=== PATIENT | male | born 1975 | race Hispanic/Latino ===

== ENCOUNTER 2017-06-11 09:26 | Inpatient (IN) | payer MEDICAID, OTHER ==
[2017-06-11 09:30] VITALS: BMI 38.4
[2017-06-11] MEDS ORDERED: Sodium Chloride 0.9% 1,000 ML IV STA (09:56)
--- NOTE | 2017-06-11 10:10 | ED PDOC ---
Arrival/HPI - General Chief Complaint: Lower Extremity Problem/Injury Time Seen by Provider: 06/11/17 09:30 Historian: Patient - History of Present Illness Narrative History of Present Illness (Text): 06/11/17 10:07 41-year-old male presents today with a 2 day history of right foot and ankle pain. Patient denies trauma or injury. Denies fevers or chills. Patient states pain is severe in the right foot and ankle that he is unable to apply pressure. Patient states he is a diabetic and has not been taking his medications. Patient denies chest pain or shortness of breath. No abdominal pain. No medications taken for pain at home. No other complaints. Patient states the pain is sharp and severe and located to the lateral aspect of the foot and ankle. Time/Duration: Other (2 days) Symptom Onset: Sudden Symptom Course: Worsening Quality: Aching, Stabbing Severity Level: Severe Past Medical History - Provider Review Nursing Documentation Reviewed: Yes - Travel History Have you recently traveled outside [place] w/in the past 3 mons?: No - Infectious Disease Hx of Infectious Diseases: None - Tetanus Immunization Tetanus Immunization: Unknown - Cardiac Hx Cardiac Disorders: No - Pulmonary Hx Respiratory Disorders: No - Neurological Hx Neurological Disorder: No - HEENT Hx HEENT Disorder: No - Renal Hx Renal Disorder: No - Endocrine/Metabolic Hx Endocrine Disorders: Yes Hx Diabetes Mellitus Type 2: Yes - Hematological/Oncological Hx Blood Disorders: No - Integumentary Hx Dermatological Disorder: No - Musculoskeletal/Rheumatological Hx Musculoskeletal Disorders: No Hx Falls: No - Gastrointestinal Hx Gastrointestinal Disorders: No - Genitourinary/Gynecological Hx Genitourinary Disorders: No - Psychiatric Hx Psychophysiologic Disorder: No Hx Substance Use: No - Past Surgical History Past Surgical History: Non-Contributing - Surgical History Other/Comment: benign cyst removed from behind L ear - Anesthesia Hx Anesthesia: Yes Hx Anesthesia Reactions: No Hx Malignant Hyperthermia: No - Suicidal Assessment Feels Threatened In Home Enviroment: No Family/Social History - Physician Review Nursing Documentation Reviewed: Yes Family/Social History: Unknown Family HX Smoking Status: Heavy Smoker > 10 Cigarettes Daily Hx Alcohol Use: No Hx Substance Use: No Hx Substance Use Treatment: No Allergies/Home Meds Allergies/Adverse Reactions: Allergies No Known Allergies Allergy (Verified 10/30/14 08:49) Home Medications: Home Meds Medication Instructions Recorded Confirmed No Known Home Med 10/03/16 06/11/17 Review of Systems - Review of Systems Constitutional: absent: Fatigue, Fevers Respiratory: absent: SOB, Cough Cardiovascular: absent: Chest Pain, Palpitations Gastrointestinal: absent: Abdominal Pain, Nausea, Vomiting Musculoskeletal: Arthralgias Skin: Cellulitis Neurological: absent: Headache, Dizziness Psychiatric: absent: Anxiety, Depression Physical Exam Vital Signs Reviewed: Yes Vital Signs Temp Pulse Resp BP Pulse Ox 06/11/17 11:07 98 H 18 145/86 99 06/11/17 09:30 98.6 F 103 H 18 149/94 H 99 Temperature: Afebrile Blood Pressure: Hypertensive Pulse: Tachycardic Respiratory Rate: Normal Appearance: Positive for: Well-Appearing, Non-Toxic, Comfortable Pain Distress: None Mental Status: Positive for: Alert and Oriented X 3 - Systems Exam Head: Present: Atraumatic Mouth: Present: Moist Mucous Membranes Neck: Present: Normal Range of Motion Respiratory/Chest: Present: Clear to Auscultation, Good Air Exchange. No: Respiratory Distress, Accessory Muscle Use Cardiovascular: Present: Regular Rate and Rhythm, Normal S1, S2. No: Murmurs Lower Extremity: Present: NORMAL PULSES, Normal ROM, Tenderness (right foot/ ankle; + edema and erythema noted to lateral aspect of foot. + edema noted to lateral malleolus; full passive rom of ankle with pain; sensation and distal pulses intact. cap refill <2. ), Swelling, Erythema, Neurovascularly Intact, Capillary Refill < 2 s. No: CALF TENDERNESS Neurological: Present: GCS=15, Speech Normal Skin: Present: Warm, Dry Psychiatric: Present: Alert, Oriented x 3 Medical Decision Making ED Course and Treatment: 06/11/17 10:11 41yr old male with right foot and ankle pain with swelling and erythema. cbc wnl cmp wnl blood cultures pending; toradol IV NS iv bolus xray right foot: no fracture xray right ankle; no fracture 06/11/17 11:46 pt non toxic; still c/o pain; pt is diabetic with right foot cellulitis; vancomycin and zosyn ordered IV. case discussed with dr. luqeu. will admit to med/surg for celluitis. impression; cellulitis, foot admit to med/surg. 06/11/17 12:28 - Lab Interpretations Lab Results: 06/11/17 10:00 06/11/17 10:00 Lab Results 06/11/17 10:00: WBC 9.9, RBC 5.25, Hgb 16.1, Hct 46.0, MCV 87.6, MCH 30.7, MCHC 35.0, RDW 13.9, Plt Count 208, MPV 11.6 H, Gran % 70.3 H, Lymph % (Auto) 18.1 L , [place] % (Auto) 8.3 H, Eos % (Auto) 2.7, Baso % (Auto) 0.6, Gran # 6.96 H, Lymph # 1.8, [place] # 0.8 H, Eos # 0.3, Baso # 0.06 06/11/17 10:00: Sodium 140, Potassium 4.1, Chloride 103, Carbon Dioxide 26, Anion Gap 15, BUN 10, Creatinine 0.6 L, Est GFR ( Amer) > 60, Est GFR ( Non-Af Amer) > 60, Random Glucose 121 H, Calcium 9.7, Total Bilirubin 0.5, AST 15 L, ALT 28, Alkaline Phosphatase 76, Total Protein 7.2, Albumin 4.5, Globulin 2.7, Albumin/Globulin Ratio 1.7 - RAD Interpretation Radiology Orders: 06/11/17 09:56 ANKLE RIGHT 3 VIEWS ROUTINE [RAD] Stat FOOT RIGHT 3 VIEWS ROUTINE [RAD] Stat 06/11/17 09:57 DUPLEX LOWER EXTRM VEIN RIGHT [US] Stat - Medication Orders Current Medication Orders: Vancomycin HCl (Vancomycin 1gm) 1 gm in 250 mls @ 167 mls/hr IVPB STAT STA PRN Reason: Protocol Stop: 06/11/17 13:05 Last Admin: 06/11/17 12:27 Dose: 167 mls/hr eMAR Start Stop Document 06/11/17 12:27 SF (Rec: 06/11/17 12:27 [place] [facility] [email or web address] Intravenous Solution Start Date 06/11/17 Start Time 12:27 End Date 06/11/17 End time 13:57 Total Infusion Time 90 Discontinued Medications Sodium Chloride (Sodium Chloride 0.9%) 1,000 mls @ 999 mls/hr IV .Q1H1M STA Stop: 06/11/17 10:56 Last Admin: 06/11/17 10:12 Dose: 999 mls/hr eMAR Start Stop Document 06/11/17 10:12 SF (Rec: 06/11/17 10:12 [email or web address] Intravenous Solution Start Date 06/11/17 Start Time 10:12 End Date 06/11/17 End time 11:13 Total Infusion Time 61 Piperacillin Sod/Tazobactam Sod (Zosyn 3.375 In Ns 100ml) 100 mls @ 200 mls/hr IVPB STAT STA PRN Reason: Protocol Stop: 06/11/17 12:05 Last Admin: 06/11/17 11:58 Dose: 200 mls/hr eMAR Start Stop Document 06/11/17 11:58 SF (Rec: 06/11/17 11:59 [email or web address] Intravenous Solution Start Date 06/11/17 Start Time 11:58 End Date 06/11/17 End time 12:28 Total Infusion Time 30 Ketorolac Tromethamine (Toradol) 30 mg IVP STAT STA Stop: 06/11/17 09:57 Last Admin: 06/11/17 10:12 Dose: 30 mg MAR Pain Assessment Document 06/11/17 10:12 SF (Rec[facility]11[facility]17 10:[email or web address] Pain Reassessment Is this a pain reassessment? Yes Sleep Is patient sleeping during reassessment? No Presence of Pain Presence of Pain Yes IVP Administration Document 06/11/17 10:12 SF (Rec: 06/11/17 10:13 [email or web address] Charges for Administration # of IVP Administrations 1 Disposition/Present on Arrival - Present on Arrival Any Indicators Present on Arrival: Yes History of DVT/PE: No History of Uncontrolled Diabetes: Yes Urinary Catheter: No History of Decub. Ulcer: No History Surgical Site Infection Following: None - Disposition Have Diagnosis and Disposition been Completed?: Yes Diagnosis: Cellulitis Disposition: HOSPITALIZED Disposition Time: 11:45 Patient Plan: Admission Patient Problems: Current Active Problems Problem Status Onset Cellulitis Acute Condition: FAIR Discharge Instructions (ExitCare): Cellulitis (ED) Referrals: Stacy La MD [Primary Care Provider] - Follow up with primary Forms: [employer] ([place])
[2017-06-11 10:40] LABS: BASO # 0.06 K/mm3 (0.0-2.0); BASO % 0.6 % (0.0-3.0); EOS # 0.3 (0.0-0.7); EOS % 2.7 % (1.5-5.0); GRAN # 6.96 (1.4-6.5); GRAN % 70.3 % (50.0-68.0); LYMPH # 1.8 (1.2-3.4); LYMPH % 18.1 % (22.0-35.0); MEAN CELL VOLUME 87.6 fl (80.0-105.0); MEAN CORPUSCULAR HEMOGLOBIN 30.7 pg (25.0-35.0); MEAN PLATELET VOLUME 11.6 fl (7.0-11.0); MONO # 0.8 (0.1-0.6); MONO % 8.3 % (1.0-6.0); RED CELL DISTRIBUTION WIDTH 13.9 % (11.5-14.5); WHITE BLOOD COUNT 9.9 10^3/ul (4.5-11.0)
[2017-06-11 10:41] LABS: ALB/GLOB RATIO 1.7 (1.1-1.8); ALKALINE PHOSPHATASE 76 U/L (38-126); ALT/SGPT 28 U/L (7-56); AST/SGOT 15 U/L (17-59); BILIRUBIN,TOTAL 0.5 mg/dL (0.2-1.3); BLOOD UREA NITROGEN 10 mg/dL (7-21); CALCIUM 9.7 mg/dL (8.4-10.5); CARBON DIOXIDE 26 mmol/L (21-33); CHLORIDE 103 mmol/L (98-107); GFR AFRICAN-AMERICAN > 60; GLUCOSE,RANDOM 121 mg/dL (70-110); POTASSIUM 4.1 mmol/L (3.6-5.0); SODIUM 140 mmol/L (132-148); TOTAL PROTEIN 7.2 g/dL (5.8-8.3)
--- NOTE | 2017-06-11 11:22 | US ---
PROCEDURE: Right lower extremity venous US HISTORY: Leg pain and swelling. Evaluate for DVT. PHYSICIAN(S): Dave Roe M.D. TECHNIQUE: Duplex sonography and color-flow Doppler with graded compression were used to evaluate the deep venous system of the right lower extremity. FINDINGS: The visualized deep venous system of the right lower extremity is sonographically normal and compressible. Normal waveforms and augmentation are seen. There is no sonographic evidence for deep venous thrombosis in the visualized segments of the right lower extremity. IMPRESSION: 1. No sonographic evidence for deep venous thrombosis in the visualized segments of the right lower extremity.
[2017-06-11] MEDS ORDERED: Vancomycin 1gm in NS 250ml 1 GM/250 ML BAG IVPB STA (11:36)
[2017-06-11] MEDS ORDERED: Piperacillin/Tazobact 3.375 gm 100 ML IVPB STA (11:36)
--- NOTE | 2017-06-11 11:36 | RAD ---
PROCEDURE: Right Ankle Radiographs. HISTORY: ankle pain COMPARISON: None FINDINGS: BONES: Normal. No fracture. JOINTS: Normal. No osteoarthritis. Ankle mortise maintained. Talar dome intact SOFT TISSUES: Calcification can be seen between the tibia and fibula probably within the interosseous ligament. This is of doubtful significance OTHER FINDINGS: None. IMPRESSION: No acute findings
--- NOTE | 2017-06-11 12:16 | RAD ---
PROCEDURE: Right Foot Radiographs. HISTORY: foot pain COMPARISON: None. FINDINGS: BONES: Normal. No fracture. JOINTS: Normal. SOFT TISSUES: Normal. OTHER FINDINGS: None. IMPRESSION: Normal right foot radiographs.
[2017-06-11] MEDS ORDERED: Morphine 2 mg/ml ISec IVP PRN (14:17)
--- NOTE | 2017-06-11 14:30 | CP.PCM.HP ---
<Driss Mims - Last Filed: 06/11/17 14:52> History of Present Illness - History of Present Illness History of Present Illness: Subjective: Patient is a 41-year-old male with a past medical history of diabetes and tobacco abuse who presented to the ED for evaluation and treatment of right foot pain. Patient states the pain began 2 nights ago without any provoking event. Denies trauma or injury to affected area.Pain is associated with redness and swelling which remains localized to the lateral aspects of the right foot and ankle. Associated with pain which is described as being sharp in nature and is rated a 10/10. Pain is exacerbated with applied pressure and reduced with off-loading. Denies f/c/cp/sob/abdominal pain/n/v/d/c/urinary sxs. Physical Examination: Head: Present: Atraumatic, NC Mouth: Present: Moist Mucous Membranes Neck: Present: Normal Range of Motion Respiratory/Chest: Present: Clear to Auscultation, Good Air Exchange. No: Respiratory Distress, Accessory Muscle Use Cardiovascular: Present: Regular Rate and Rhythm, Normal S1, S2. No: Murmurs Abdomen: soft, NTTP, no guarding, no rebound tenderness Lower Extremity: Present: DP pulses intact bilaterally, Normal ROM, Tenderness to palpation right foot/ankle; + edema and erythema noted to lateral aspect of foot. + edema noted to lateral malleolus; full passive rom of ankle with pain; sensation and distal pulses intact. cap refill < 2 seconds Neurological: Patient is awake, alert, responds to verbal stimuli, answers questions appropriately, follows commands, and moves extremities past midline Skin: Present: Warm, Dry Psychiatric: Present: Alert, Oriented x 3 Assessment and Plan: Patient is a 41-year-old male with a past medical history of diabetes who presented to the ED for evaluation and treatment of right foot pain. Right Foot and Ankle Cellulitis - vancomycin and zosyn - foot MRI with and without contrast to rule out OM - blood culture and wound cultures - pain control with toradol prn and morphine prn - prn tylenol for fever - ID consult- appreciate recs - Podo consult- appreciate recs Diabetes - noncompliant with home meds - fingersticks ACHS - ISS - A1C pending - lipid panel pending - carb consistent diet Tobacco Abuse - encouraged smoking cessation, education on danger of smoking/chewing tobacco products provided - nicotine patch PPX - protonix - subq heparin Patient seen, case discussed with, and plan approved by attending physician, Dr. Dumont. Present on Admission - Present on Admission Any Indicators Present on Admission: Yes History of Uncontrolled Diabetes: Yes Past Patient History - Infectious Disease Hx of Infectious Diseases: None - Tetanus Immunizations Tetanus Immunization: Unknown - Past Social History Smoking Status: Heavy Smoker > 10 Cigarettes Daily - CARDIAC Hx Cardiac Disorders: No - PULMONARY Hx Respiratory Disorders: No - NEUROLOGICAL Hx Neurological Disorder: No - HEENT Hx HEENT Problems: No - RENAL Hx Chronic Kidney Disease: No - ENDOCRINE/METABOLIC Hx Endocrine Disorders: Yes Hx Diabetes Mellitus Type 2: Yes - HEMATOLOGICAL/ONCOLOGICAL Hx Blood Disorders: No - INTEGUMENTARY Hx Dermatological Problems: No - MUSCULOSKELETAL/RHEUMATOLOGICAL Hx Musculoskeletal Disorders: No Hx Falls: No - GASTROINTESTINAL Hx Gastrointestinal Disorders: No - GENITOURINARY/GYNECOLOGICAL Hx Genitourinary Disorders: No - PSYCHIATRIC Hx Psychophysiologic Disorder: No Hx Substance Use: No - SURGICAL HISTORY Other/Comment: benign cyst removed from behind L ear - ANESTHESIA Hx Anesthesia: Yes Hx Anesthesia Reactions: No Hx Malignant Hyperthermia: No Meds Allergies/Adverse Reactions: Allergies Allergy/AdvReac Type Severity Reaction Status Date / Time No Known Allergies Allergy Verified 06/11/17 17:03 Results - Vital Signs Recent Vital Signs: Last Vital Signs Temp 98.6 F 06/11/17 09:30 Pulse 80 06/11/17 13:40 Resp 18 06/11/17 13:40 BP 143/79 06/11/17 12:49 Pulse Ox 99 06/11/17 12:49 - Labs Result Diagrams: 06/11/17 10:00 06/11/17 10:00 <Danyell Dumont - Last Filed: 06/12/17 16:42> Results - Vital Signs Recent Vital Signs: Last Vital Signs Temp 97.8 F 06/12/17 07:30 Pulse 68 06/12/17 07:30 Resp 20 06/12/17 07:30 BP 118/82 06/12/17 07:30 Pulse Ox 97 06/12/17 07:30 - Labs Result Diagrams: 06/12/17 07:30 06/12/17 07:30 Labs: Laboratory Results - last 24 hr 06/11/17 06/11/17 06/11/17 16:00 20:20 21:23 WBC RBC Hgb Hct MCV MCH MCHC RDW Plt Count MPV Gran % Lymph % (Auto) [place] % (Auto) Eos % (Auto) Baso % (Auto) Gran # Lymph # [place] # Eos # Baso # Sodium Potassium Chloride Carbon Dioxide Anion Gap BUN Creatinine Est GFR ( Amer) Est GFR (Non-Af Amer) POC Glucose (mg/dL) 133 H 125 H Random Glucose Uric Acid Calcium Phosphorus Magnesium Total Bilirubin AST ALT Alkaline Phosphatase Total Protein Albumin Globulin Albumin/Globulin Ratio Procalcitonin Urine Color Yellow Urine Appearance Clear Urine pH 6.0 Ur Specific [place] >= 1.030 Urine Protein 100 H Urine Glucose (UA) Negative Urine Ketones Trace H Urine Blood Negative Urine Nitrate Negative Urine Bilirubin Negative Urine Urobilinogen 1.0 H Ur Leukocyte Esterase Negative Urine RBC 0 - 2 Urine WBC 1 - 3 Ur Epithelial Cells 0 - 2 Urine Bacteria Few 06/12/17 06/12/17 06/12/17 07:18 07:30 07:30 WBC 6.8 D RBC 4.73 Hgb 14.1 D Hct 42.1 MCV 89.0 MCH 29.8 MCHC 33.5 RDW 14.1 Plt Count 187 MPV 11.5 H Gran % 59.1 Lymph % (Auto) 22.8 [place] % (Auto) 9.8 H Eos % (Auto) 7.3 H Baso % (Auto) 1.0 Gran # 4.02 Lymph # 1.6 [place] # 0.7 H Eos # 0.5 Baso # 0.07 Sodium Potassium Chloride Carbon Dioxide Anion Gap BUN Creatinine Est GFR ( Amer) Est GFR (Non-Af Amer) POC Glucose (mg/dL) 111 H Random Glucose Uric Acid Calcium Phosphorus Magnesium Total Bilirubin AST ALT Alkaline Phosphatase Total Protein Albumin Globulin Albumin/Globulin Ratio Procalcitonin < 0.05 L Urine Color Urine Appearance Urine pH Ur Specific [place] Urine Protein Urine Glucose (UA) Urine Ketones Urine Blood Urine Nitrate Urine Bilirubin Urine Urobilinogen Ur Leukocyte Esterase Urine RBC Urine WBC Ur Epithelial Cells Urine Bacteria 06/12/17 06/12/17 06/12/17 07:30 07:30 11:14 WBC RBC Hgb Hct MCV MCH MCHC RDW Plt Count MPV Gran % Lymph % (Auto) [place] % (Auto) Eos % (Auto) Baso % (Auto) Gran # Lymph # [place] # Eos # Baso # Sodium 138 Potassium 4.3 Chloride 104 Carbon Dioxide 26 Anion Gap 12 BUN 11 Creatinine 0.7 L Est GFR ( Amer) > 60 Est GFR (Non-Af Amer) > 60 POC Glucose (mg/dL) 107 Random Glucose 106 Uric Acid 5.4 Calcium 9.1 Phosphorus 3.3 Magnesium 1.9 Total Bilirubin 0.6 AST 20 ALT 28 Alkaline Phosphatase 65 Total Protein 6.6 Albumin 3.8 Globulin 2.8 Albumin/Globulin Ratio 1.4 Procalcitonin Urine Color Urine Appearance Urine pH Ur Specific [place] Urine Protein Urine Glucose (UA) Urine Ketones Urine Blood Urine Nitrate Urine Bilirubin Urine Urobilinogen Ur Leukocyte Esterase Urine RBC Urine WBC Ur Epithelial Cells Urine Bacteria Attending/Attestation - Attestation I have personally seen and examined this patient.: Yes I have fully participated in the care of the patient.: Yes I have reviewed all pertinent clinical information: Yes Notes (Text): I have seen and examined the patient at bedside. Agree with the above note with the following additions/ exceptions: Briefly this is 41 year old male with history of DM-2,non compliant with medications due to lack of insurance, poor dental hygeine who came today for evaluation of right foot and ankle cellulitis. Will order MRI of the foot and start IV antibiotics. Will check HBA1C and start ISS. Diabetic education will be provided. Will consult SW. Patient states that he is unable to afford medications. Tobacco cessation counselling provided. Upon discharge patient will follow up with Dr La. Dr Danyell Dumont
[2017-06-11] MEDS: Pantoprazole 40 mg EC Tab PO SCH (15:20)
[2017-06-11] MEDS: Vancomycin 1gm in NS 250ml 1 GM/250 ML BAG IVPB SCH (15:22)
[2017-06-11 15:44] LABS: CHOLESTEROL 201 mg/dL (130-200)
[2017-06-11] MEDS: Insulin Lispro (humaLOG) LOW Coverage SC SCH ×2 (18:30→22:00)
[2017-06-11] MEDS ORDERED: Gadodiamide 287 MG/ML VIAL (20ML) IV ONE (18:40)
[2017-06-11] MEDS ORDERED: Influenza Vaccine 60 mcg/0.5 mL SYR (4YR UP) IM ONE (19:19)
[2017-06-11] MEDS ORDERED: Pneumococcal 23-Valent Vaccine IM ONE (19:19)
[2017-06-11 20:33] LABS: URINE BILIRUBIN NEGATIVE (NEGATIVE); URINE BLOOD NEGATIVE (NEGATIVE); URINE GLUCOSE (UA) NEGATIVE (NEGATIVE); URINE KETONE TRACE mg/dL (NEGATIVE); URINE LEUKOCYTE ESTERASE NEGATIVE Leu/uL (NEGATIVE); URINE PROTEIN 100 mg/dL (<30 mg/dL)
[2017-06-11 20:40] LABS: URINE APPEARANCE CLEAR (CLEAR); URINE COLOR YELLOW (YELLOW)
--- NOTE | 2017-06-11 20:41 | MRI ---
EXAM: MR Right Lower Extremity Without and With Intravenous Contrast, Foot EXAM DATE/TIME: 06/11/2017 2:14 PM CLINICAL HISTORY: The patient age is 41 years old and is male; Signs and symptoms; Swelling, leg or foot; Patient HX: Swelling lateral side of the foot/ankle area. Marker was placed; Additional info: Severe right foot pain Facility exam id and description: Mri footwwort foot w/ w/o contrast right TECHNIQUE: Multiplanar magnetic resonance images of the right foot without and with intravenous contrast. CONTRAST: 20 mL of OMNISCAN administered intravenously. COMPARISON: DX - FOOT RIGHT 3 VIEWS ROUTINE 06/11/2017 10:52:39 AM FINDINGS: LIGAMENTS: Lisfranc: There is heterogeneous signal intensity of the Lisfranc ligament, without a full-thickness tear. There is heterogeneous signal intensity of the deltoid ligament, without a visualized acute tear. The anterior and posterior tibiofibular and talofibular ligaments are intact. TENDONS: Flexor: No visualized acute tear. Extensor: No visualized acute tear. Peroneal: There is a partial tear of the peroneus longus tendon as it courses to the undersurface of the foot. Mild fluid surrounds the peroneal tendons, consistent with tenosynovitis. Tibialis anterior:No visualized acute tear. Tibialis posterior:No visualized acute tear. Muscles: No acute abnormality. Fluid: There is a small calcaneal cyst. Small effusions are identified at the tibia talar and subtalar joints. There is a small effusion within the calcaneocuboid joint. Sinus tarsi: Edema is identified within the sinus tarsi, which can be associated with sinus tarsi syndrome. Plantar fascia: There is a small linear partial tear of the proximal attachment of the plantar fascia. Bones/joints: Cystic/edematous change is identified within the fourth metatarsal bone and lateral cuneiform bone, with edema within the intermediate cuneiform bone. There is significant enhancing edema involving the fifth digit, which is likely post traumatic or due to osteomyelitis. There is swelling of the visualized foot and ankle, suggestive of cellulitis. There is mild dorsal spurring of the midfoot. No dislocation. Small cystic collections of fluid are identified between the medial and intermediate cuneiform bones. As a whole, this measures 0.8 x 0.4 cm. These are consistent with synovial or ganglion cysts. A calcaneal spur is identified. Other findings: Evaluation of the toes is suboptimal on this study, with extension of the toes out of the [id number] of the study. This study concentrates on the mid to hindfoot. IMPRESSION: 1. Cystic/edematous change is identified within the fourth metatarsal bone and lateral cuneiform bone, with edema within the intermediate cuneiform bone. These findings can be due to arthropathy, neuropathic changes, or osteomyelitis. 2. There is significant enhancing edema involving the fifth digit, which is likely post traumatic or due to osteomyelitis. 3. There is swelling of the visualized foot and ankle, suggestive of cellulitis. 4. Small effusions are noted above. 5. There is a partial tear of the peroneus longus tendon as it courses to the undersurface of the foot. Tenosynovitis is also visualized of the peroneal tendons. 6. There is a partial tear of the proximal attachment of the plantar fascia. 7. Additional findings described above.
[2017-06-11 20:53] LABS: URINE BACTERIA FEW (NEG); URINE EPITHELIAL CELLS 0 - 2 /hpf (0-5); URINE RBC 0 - 2 /hpf (0-2)
[2017-06-11] MEDS: Piperacillin/Tazobact 3.375 gm 100 ML IVPB SCH (21:04)
[2017-06-12] MEDS: Piperacillin/Tazobact 3.375 gm 100 ML IVPB SCH (00:01)
[2017-06-12] MEDS: Vancomycin 1gm in NS 250ml 1 GM/250 ML BAG IVPB SCH ×2 (02:42→16:39)
[2017-06-12 07:43] LABS: BASO # 0.07 K/mm3 (0.0-2.0); EOS # 0.5 (0.0-0.7); EOS % 7.3 % (1.5-5.0); GRAN # 4.02 (1.4-6.5); GRAN % 59.1 % (50.0-68.0); HEMATOCRIT 42.1 % (42.0-52.0); LYMPH # 1.6 (1.2-3.4); LYMPH % 22.8 % (22.0-35.0); MEAN CORPUSCULAR HEMOGLOBIN 29.8 pg (25.0-35.0); MEAN CORPUSCULAR HGB CONC 33.5 g/dl (31.0-37.0); MEAN PLATELET VOLUME 11.5 fl (7.0-11.0); MONO # 0.7 (0.1-0.6); MONO % 9.8 % (1.0-6.0); RED CELL DISTRIBUTION WIDTH 14.1 % (11.5-14.5); WHITE BLOOD COUNT 6.8 10^3/ul (4.5-11.0)
[2017-06-12 08:05] LABS: ALB/GLOB RATIO 1.4 (1.1-1.8); ALKALINE PHOSPHATASE 65 U/L (38-126); ALT/SGPT 28 U/L (7-56); AST/SGOT 20 U/L (17-59); BILIRUBIN,TOTAL 0.6 mg/dL (0.2-1.3); BLOOD UREA NITROGEN 11 mg/dL (7-21); CALCIUM 9.1 mg/dL (8.4-10.5); CARBON DIOXIDE 26 mmol/L (21-33); CHLORIDE 104 mmol/L (98-107); GFR AFRICAN-AMERICAN > 60; GLUCOSE,RANDOM 106 mg/dL (70-110); MAGNESIUM 1.9 mg/dL (1.7-2.2); PHOSPHOROUS 3.3 mg/dL (2.5-4.5); POTASSIUM 4.3 mmol/L (3.6-5.0); SODIUM 138 mmol/L (132-148); TOTAL PROTEIN 6.6 g/dL (5.8-8.3)
[2017-06-12] MEDS: Insulin Lispro (humaLOG) LOW Coverage SC SCH ×2 (08:33→22:25)
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
[2017-06-12] MEDS: Pantoprazole 40 mg EC Tab PO SCH (11:15)
--- NOTE | 2017-06-12 13:00 | CP.PCM.PN ---
<Driss Mims - Last Filed: 06/12/17 12:53> Subjective - Date & Time of Evaluation Date of Evaluation: 06/12/17 Time of Evaluation: 08:50 - Subjective Subjective: Subjective: Patient seen and examined at bedside. Resting comfortably in bed. No acute overnight events. Patient states foot pain has improved relative to baseline. Offers no new complaints at this time. Denies f/c/cp/sob/abdominal pain/n/v/d/c/ urinary sxs. Physical Examination: Head: Present: Atraumatic, NC Mouth: Present: Moist Mucous Membranes Neck: Present: Normal Range of Motion Respiratory/Chest: Present: Clear to Auscultation, Good Air Exchange. No: Respiratory Distress, Accessory Muscle Use Cardiovascular: Present: Regular Rate and Rhythm, Normal S1, S2. No: Murmurs Abdomen: soft, NTTP, no guarding, no rebound tenderness Lower Extremity: Present: DP pulses intact bilaterally, Normal ROM, Tenderness to palpation right foot/ankle; + edema and erythema noted to lateral aspect of foot. + edema noted to lateral malleolus; full passive rom of ankle with pain; sensation and distal pulses intact. cap refill < 2 seconds Neurological: Patient is awake, alert, responds to verbal stimuli, answers questions appropriately, follows commands, and moves extremities past midline Skin: Present: Warm, Dry Psychiatric: Present: Alert, Oriented x 3 Assessment and Plan: Patient is a 41-year-old male with a past medical history of diabetes who presented to the ED for evaluation and treatment of right foot pain. Right Foot and Ankle Cellulitis - c/w cefepime and vancomycin - foot MRI with and without contrast- 4th and 5th digits show signs of OM vs arthropathy vs trauma - blood culture and wound cultures pending - pain control with toradol prn and morphine prn - prn tylenol for fever - ID consult- appreciate recs - Podo consult- appreciate recs- Uric acid levels ordered for gout vs pseudogout Diabetes - noncompliant with home meds - fingersticks ACHS - ISS - A1C pending - lipid panel- TAG and CHL elevated, will consider starting patient on stain if agreeable- encouraged healthy diet and exercise - carb consistent diet Tobacco Abuse - encouraged smoking cessation, education on danger of smoking/chewing tobacco products provided - nicotine patch PPX - protonix - subq heparin Patient seen, case discussed with, and plan approved by attending physician, Dr. Dumont. Objective - Vital Signs/Intake and Output Vital Signs (last 24 hours): Temp Pulse Resp BP Pulse Ox 97.8 F 68 20 118/82 97 06/12/17 07:30 06/12/17 07:30 06/12/17 07:30 06/12/17 07:30 06/12/17 07:30 Intake and Output: 06/12/17 06/12/17 06:59 18:59 Intake Total 1020 Balance 1020 - Medications Medications: Current Medications Acetaminophen (Tylenol 325mg Tab) 650 mg PO Q6H PRN PRN Reason: Fever >100.4 F Heparin Sodium (Porcine) (Heparin) 5,000 units SC Q8 AVELINO PRN Reason: Protocol Last Admin: 06/12/17 05:40 Dose: 5,000 units Vancomycin HCl (Vancomycin 1gm) 1 gm in 250 mls @ 167 mls/hr IVPB Q12H [facility] PRN Reason: Protocol Last Admin: 06/12/17 02:42 Dose: 167 mls/hr Cefepime HCl (Maxipime 1gm) 1 gm in 100 mls @ 100 mls/hr IVPB Q8 [facility]ELINO PRN Reason: Protocol Stop: 06/21/17 14:01 Insulin Human Lispro (Humalog Low) 0 units SC ACHS AVELINO PRN Reason: Protocol Last Admin: 06/12/17 08:33 Dose: Not Given Ketorolac Tromethamine (Toradol) 30 mg IVP Q6 PRN PRN Reason: Pain, moderate (4-7) Morphine Sulfate (Morphine) 2 mg IVP Q4H PRN PRN Reason: Pain, severe (8-10) Nicotine (Nicoderm Cq) 1 patch TD DAILY [facility] Last Admin: 06/12/17 11:15 Dose: 1 patch Pantoprazole Sodium (Protonix Ec Tab) 40 mg PO DAILY [facility] Last Admin: 06/12/17 11:15 Dose: 40 mg - Labs Labs: 06/12/17 07:30 06/12/17 07:30 <Danyell Dumont - Last Filed: 06/12/17 16:45> Objective - Vital Signs/Intake and Output Vital Signs (last 24 hours): Temp Pulse Resp BP Pulse Ox 98.5 F 73 18 111/79 96 06/12/17 16:00 06/12/17 16:00 06/12/17 16:00 06/12/17 16:00 06/12/17 16:00 Intake and Output: 06/12/17 06/12/17 06:59 18:59 Intake Total 1020 720 Balance 1020 720 - Medications Medications: Current Medications Acetaminophen (Tylenol 325mg Tab) 650 mg PO Q6H PRN PRN Reason: Fever >100.4 F Heparin Sodium (Porcine) (Heparin) 5,000 units SC Q8 AVELINO PRN Reason: Protocol Last Admin: 06/12/17 14:38 Dose: 5,000 units Vancomycin HCl (Vancomycin 1gm) 1 gm in 250 mls @ 167 mls/hr IVPB Q12H [facility] PRN Reason: Protocol Last Admin: 06/12/17 16:39 Dose: 167 mls/hr Cefepime HCl (Maxipime 1gm) 1 gm in 100 mls @ 100 mls/hr IVPB Q8 [facility]ELINO PRN Reason: Protocol Stop: 06/21/17 14:01 Last Admin: 06/12/17 14:50 Dose: 100 mls/hr Insulin Human Lispro (Humalog Low) 0 units SC ACHS AVELINO PRN Reason: Protocol Last Admin: 06/12/17 08:33 Dose: Not Given Ketorolac Tromethamine (Toradol) 30 mg IVP Q6 PRN PRN Reason: Pain, moderate (4-7) Morphine Sulfate (Morphine) 2 mg IVP Q4H PRN PRN Reason: Pain, severe (8-10) Nicotine (Nicoderm Cq) 1 patch TD DAILY [facility] Last Admin: 06/12/17 11:15 Dose: 1 patch Pantoprazole Sodium (Protonix Ec Tab) 40 mg PO DAILY [facility] Last Admin: 06/12/17 11:15 Dose: 40 mg - Labs Labs: 06/12/17 07:30 06/12/17 07:30 Attending/Attestation - Attestation I have personally seen and examined this patient.: Yes I have fully participated in the care of the patient.: Yes I have reviewed all pertinent clinical information, including history, physical exam and plan: Yes Notes (Text): I have seen and examined the patient at bedside. Agree with the above note with the following additions/ exceptions: Briefly this is 41 year old male with history of DM-2, non compliant with medications due to lack of insurance, poor dental hygiene who was admitted for evaluation of right foot and ankle cellulitis. ID and podiatry consult appreciated. MRI showed suspicion of osteomyelitis. UA level normal. ESR and procal low. Will f/u HBA1C and continue ISS. Diabetic education will be provided. Will consult SW. Patient states that he is unable to afford medications. Tobacco cessation counselling provided. Upon discharge patient will follow up with Dr La. Dr Danyell Dumont
--- NOTE | 2017-06-12 13:09 | CON ---
DATE: 06/12/2017 The patient is seen earlier today. CHIEF COMPLAINT: Right ankle erythema times several days. HISTORY OF PRESENT ILLNESS: This is a 41-year-old morbidly obese male with a BMI of 38 and diabetes mellitus who is admitted now with a diagnosis of foot cellulitis. The patient denies any fevers, any chills, any nausea, any vomiting and no abdominal pain, diarrhea, or constipation. PAST MEDICAL HISTORY: Significant for diabetes mellitus. PAST SURGICAL HISTORY: Benign cyst. He states that was removed from behind his left ear. ALLERGIES: THE PATIENT HAS NO KNOWN ALLERGIES. MEDICATIONS AT HOME: Noted. PHYSICAL EXAMINATION: GENERAL: The patient is in bed, in no acute distress, and answering questions appropriately. VITAL SIGNS: Temperature of 98, heart rate of 80, it was up to 103, respiratory rate of 20, and blood pressure is 120/70. HEENT: Unremarkable. NECK: Supple. LUNGS: Decreased breath sounds. HEART: Normal S1 and S2. ABDOMEN: Soft and nontender. EXTREMITIES: Examination of the right ankle reveals erythema. He is able to flex and extend his foot. There is no break in the skin. Pulses are intact. LABORATORY DATA: Reveals a white count of 9000. Sed rate is 16 and hemoglobin of 16. BUN of 11 and creatinine of 0.7. Urinalysis 1-3 WBCs. The patient had an MRI of his foot, which was read by Dr. Gabriel Benavides. He states the findings may be to arthropathy, may be neuropathic changes, may be osteomyelitis, may be cystic, and may be traumatic.. Dr. Mims's consultation is reviewed. History and physical examination by Prasanna is also appreciated. Emergency room chart is reviewed. ASSESSMENT AND PLAN: This is a 41-year-old male with diabetes mellitus presents with a right ankle cellulitis. We will review the MRI, rule out osteomyelitis. Should have vascular workup, podiatry workup, and treat the patient with vancomycin and Maxipime. C-reactive protein. Should have Dopplers both arterial and venous and we will make further recommendations. The patient is currently unemployed, lives with his sister with limited access to resources. Ko Delacruz MD
[2017-06-12] MEDS: Cefepime 1gm in NS 100ml 1 GM/100 ML BAG IVPB SCH ×2 (14:50→21:10)
[2017-06-13] MEDS: Vancomycin 1gm in NS 250ml 1 GM/250 ML BAG IVPB SCH ×2 (02:11→15:21)
[2017-06-13] MEDS: Cefepime 1gm in NS 100ml 1 GM/100 ML BAG IVPB SCH ×3 (05:42→21:11)
[2017-06-13 07:50] LABS: BASO # 0.06 K/mm3 (0.0-2.0); EOS # 0.5 (0.0-0.7); EOS % 8.9 % (1.5-5.0); GRAN # 2.99 (1.4-6.5); GRAN % 51.1 % (50.0-68.0); HEMATOCRIT 42.9 % (42.0-52.0); LYMPH # 1.6 (1.2-3.4); MEAN CELL VOLUME 88.3 fl (80.0-105.0); MEAN CORPUSCULAR HEMOGLOBIN 29.4 pg (25.0-35.0); MEAN CORPUSCULAR HGB CONC 33.3 g/dl (31.0-37.0); MEAN PLATELET VOLUME 12.1 fl (7.0-11.0); MONO # 0.7 (0.1-0.6); RED CELL DISTRIBUTION WIDTH 14.1 % (11.5-14.5); WHITE BLOOD COUNT 5.9 10^3/ul (4.5-11.0)
[2017-06-13 08:20] LABS: ALB/GLOB RATIO 1.4 (1.1-1.8); ALKALINE PHOSPHATASE 73 U/L (38-126); ALT/SGPT 28 U/L (7-56); AST/SGOT 14 U/L (17-59); BILIRUBIN,TOTAL 0.5 mg/dL (0.2-1.3); BLOOD UREA NITROGEN 9 mg/dL (7-21); CALCIUM 9.2 mg/dL (8.4-10.5); CARBON DIOXIDE 27 mmol/L (21-33); CHLORIDE 103 mmol/L (98-107); GFR AFRICAN-AMERICAN > 60; GLUCOSE,RANDOM 97 mg/dL (70-110); SODIUM 140 mmol/L (132-148); TOTAL PROTEIN 6.3 g/dL (5.8-8.3)
[2017-06-13] MEDS: Pantoprazole 40 mg EC Tab PO SCH (09:53)
--- NOTE | 2017-06-13 10:22 | CP.PCM.PN ---
<Driss Mims - Last Filed: 06/13/17 10:19> Subjective - Date & Time of Evaluation Date of Evaluation: 06/13/17 Time of Evaluation: 09:00 - Subjective Subjective: Subjective: Patient seen and examined at bedside. Resting comfortably in bed. No acute overnight events. Patient states right foot pain, swelling, and redness has improved relative to baseline. Offers no new complaints at this time. Denies f/c /cp/sob/abdominal pain/n/v/d/c/urinary sxs. Physical Examination: Head: Present: Atraumatic, NC Mouth: Present: Moist Mucous Membranes Neck: Present: Normal Range of Motion Respiratory/Chest: Present: Clear to Auscultation, Good Air Exchange. No: Respiratory Distress, Accessory Muscle Use Cardiovascular: Present: Regular Rate and Rhythm, Normal S1, S2. No: Murmurs Abdomen: soft, NTTP, no guarding, no rebound tenderness Lower Extremity: Present: DP pulses intact bilaterally, Normal ROM, Tenderness to palpation right foot/ankle; + edema and erythema noted to lateral aspect of foot. + edema noted to lateral malleolus; full passive rom of ankle with pain; sensation and distal pulses intact. cap refill < 2 seconds Neurological: Patient is awake, alert, responds to verbal stimuli, answers questions appropriately, follows commands, and moves extremities past midline Skin: Present: Warm, Dry Psychiatric: Present: Alert, Oriented x 3 Assessment and Plan: Patient is a 41-year-old male with a past medical history of diabetes who presented to the ED for evaluation and treatment of right foot pain. Right Foot and Ankle Cellulitis - c/w cefepime and vancomycin - foot MRI with and without contrast- 4th and 5th digits show signs of OM vs arthropathy vs trauma, will speak with podo to determine if patient needs to be treated for OM - blood culture and wound cultures pending - pain control with toradol prn and morphine prn - prn tylenol for fever - ID consult- appreciate recs - Podo consult- appreciate recs- Uric acid levels ordered for gout vs pseudogout - uric acid WNL Diabetes - noncompliant with home meds - fingersticks ACHS - ISS - A1C still pending - lipid panel- TAG and CHL elevated, will consider starting patient on stain if agreeable- encouraged healthy diet and exercise - carb consistent diet - diabetic education - social work consult so patient can avoid outpatient antidiabetic medication Tobacco Abuse - encouraged smoking cessation, education on danger of smoking/chewing tobacco products provided - nicotine patch PPX - protonix - subq heparin Patient seen, case discussed with, and plan approved by attending physician, Dr. Dumont. Objective - Vital Signs/Intake and Output Vital Signs (last 24 hours): Temp Pulse Resp BP Pulse Ox 97.7 F 67 20 144/66 96 06/13/17 07:15 06/13/17 07:15 06/13/17 07:15 06/13/17 07:15 06/13/17 07:15 Intake and Output: 06/13/17 06/13/17 06:59 18:59 Intake Total 930 Balance 930 - Medications Medications: Current Medications Acetaminophen (Tylenol 325mg Tab) 650 mg PO Q6H PRN PRN Reason: Fever >100.4 F Heparin Sodium (Porcine) (Heparin) 5,000 units SC Q8 [facility] PRN Reason: Protocol Last Admin: 06/13/17 05:45 Dose: 5,000 units Vancomycin HCl (Vancomycin 1gm) 1 gm in 250 mls @ 167 mls/hr IVPB Q12H [facility] PRN Reason: Protocol Last Admin: 06/13/17 02:11 Dose: 167 mls/hr Cefepime HCl (Maxipime 1gm) 1 gm in 100 mls @ 100 mls/hr IVPB Q8 [facility] PRN Reason: Protocol Stop: 06/21/17 14:01 Last Admin: 06/13/17 05:42 Dose: 100 mls/hr Insulin Human Lispro (Humalog Low) 0 units SC ACHS [facility] PRN Reason: Protocol Last Admin: 06/12/17 22:25 Dose: Not Given Ketorolac Tromethamine (Toradol) 30 mg IVP Q6 PRN PRN Reason: Pain, moderate (4-7) Morphine Sulfate (Morphine) 2 mg IVP Q4H PRN PRN Reason: Pain, severe (8-10) Nicotine (Nicoderm Cq) 1 patch TD DAILY [facility] Last Admin: 06/13/17 09:53 Dose: 1 patch Pantoprazole Sodium (Protonix Ec Tab) 40 mg PO DAILY [facility] Last Admin: 06/13/17 09:53 Dose: 40 mg - Labs Labs: 06/13/17 07:41 06/13/17 07:41 <Danyell Dumont - Last Filed: 06/13/17 10:31> Objective - Vital Signs/Intake and Output Vital Signs (last 24 hours): Temp Pulse Resp BP Pulse Ox 97.7 F 67 20 144/66 96 06/13/17 07:15 06/13/17 07:15 06/13/17 07:15 06/13/17 07:15 06/13/17 07:15 Intake and Output: 06/13/17 06/13/17 06:59 18:59 Intake Total 930 Balance 930 - Medications Medications: Current Medications Acetaminophen (Tylenol 325mg Tab) 650 mg PO Q6H PRN PRN Reason: Fever >100.4 F Heparin Sodium (Porcine) (Heparin) 5,000 units SC Q8 [facility] PRN Reason: Protocol Last Admin: 06/13/17 05:45 Dose: 5,000 units Vancomycin HCl (Vancomycin 1gm) 1 gm in 250 mls @ 167 mls/hr IVPB Q12H [facility] PRN Reason: Protocol Last Admin: 06/13/17 02:11 Dose: 167 mls/hr Cefepime HCl (Maxipime 1gm) 1 gm in 100 mls @ 100 mls/hr IVPB Q8 [facility] PRN Reason: Protocol Stop: 06/21/17 14:01 Last Admin: 06/13/17 05:42 Dose: 100 mls/hr Insulin Human Lispro (Humalog Low) 0 units SC ACHS [facility] PRN Reason: Protocol Last Admin: 06/12/17 22:25 Dose: Not Given Ketorolac Tromethamine (Toradol) 30 mg IVP Q6 PRN PRN Reason: Pain, moderate (4-7) Morphine Sulfate (Morphine) 2 mg IVP Q4H PRN PRN Reason: Pain, severe (8-10) Nicotine (Nicoderm Cq) 1 patch TD DAILY [facility] Last Admin: 06/13/17 09:53 Dose: 1 patch Pantoprazole Sodium (Protonix Ec Tab) 40 mg PO DAILY [facility] Last Admin: 06/13/17 09:53 Dose: 40 mg - Labs Labs: 06/13/17 07:41 06/13/17 07:41 Attending/Attestation - Attestation I have personally seen and examined this patient.: Yes I have fully participated in the care of the patient.: Yes I have reviewed all pertinent clinical information, including history, physical exam and plan: Yes Notes (Text): I have seen and examined the patient at bedside. Agree with the above note with the following additions/ exceptions: Briefly this is 41 year old male with history of DM-2, non compliant with medications due to lack of insurance, poor dental hygiene who was admitted for evaluation of right foot and ankle cellulitis. ID and podiatry consult appreciated. MRI showed suspicion of osteomyelitis. UA level normal. ESR and procal low. Will continue vancomycin and cefepime. Will f/u HBA1C and continue ISS. Diabetic education will be provided. Will consult SW. Patient states that he is unable to afford medications. Tobacco cessation counselling provided. Continue nicotine patch. Life style modification recommended for obesity. Upon discharge patient will follow up with Dr La. Dr Danyell Dumont
--- NOTE | 2017-06-13 12:30 | CP.PCM.PN ---
<Simi Mims - Last Filed: 06/13/17 12:26> Subjective - Date & Time of Evaluation Date of Evaluation: 06/13/17 Time of Evaluation: 12:26 - Subjective Subjective: 41 y/o male seen and evaluated at bedside for right foot pain. Patient is AAOx3 and is in NAD. Patient states that the pain has gone down a lot since the time he came in to the hospital. Patient denies of any F/N/V/C/SOB/chest pain today. Patient denies of any other pedal complains now. Objective - Vital Signs/Intake and Output Vital Signs (last 24 hours): Temp Pulse Resp BP Pulse Ox 97.7 F 67 20 144/66 96 06/13/17 07:15 06/13/17 07:15 06/13/17 07:15 06/13/17 07:15 06/13/17 07:15 Intake and Output: 06/13/17 06/13/17 06:59 18:59 Intake Total 930 Balance 930 - Medications Medications: Current Medications Acetaminophen (Tylenol 325mg Tab) 650 mg PO Q6H PRN PRN Reason: Fever >100.4 F Heparin Sodium (Porcine) (Heparin) 5,000 units SC Q8 [facility] PRN Reason: Protocol Last Admin: 06/13/17 05:45 Dose: 5,000 units Vancomycin HCl (Vancomycin 1gm) 1 gm in 250 mls @ 167 mls/hr IVPB Q12H [facility] PRN Reason: Protocol Last Admin: 06/13/17 02:11 Dose: 167 mls/hr Cefepime HCl (Maxipime 1gm) 1 gm in 100 mls @ 100 mls/hr IVPB Q8 [facility] PRN Reason: Protocol Stop: 06/21/17 14:01 Last Admin: 06/13/17 05:42 Dose: 100 mls/hr Insulin Human Lispro (Humalog Low) 0 units SC ACHS [facility] PRN Reason: Protocol Last Admin: 06/12/17 22:25 Dose: Not Given Ketorolac Tromethamine (Toradol) 30 mg IVP Q6 PRN PRN Reason: Pain, moderate (4-7) Morphine Sulfate (Morphine) 2 mg IVP Q4H PRN PRN Reason: Pain, severe (8-10) Nicotine (Nicoderm Cq) 1 patch TD DAILY [facility] Last Admin: 06/13/17 09:53 Dose: 1 patch Pantoprazole Sodium (Protonix Ec Tab) 40 mg PO DAILY [facility] Last Admin: 06/13/17 09:53 Dose: 40 mg - Labs Labs: 06/13/17 07:41 06/13/17 07:41 - Constitutional Appears: Well, Non-toxic, No Acute Distress - Extremities Exam Additional comments: Right lower extremity focused exam: VASC: DP/PT pulses are palpable 2/4, Cap refill time: < 3 sec to all digits, Temp gradient: warm to cool from proximal to distal, mild non-pitting edema noted on the dorsolateral aspect of the right foot proximal to the ankle joint appears to be resolving from yesterday DERM: no open lesions, erythema noted proximal to the ankle joint on dorsolateral aspect of the right foot which appears to be resolving from yesterday NEURO: Protective sensation grossly intact ORTHO: minimal pain on palpation posterior to lateral malleolus, no pain on palpation at the base of the 5th metatarsal, no pain on palpation during dorsiflexion, plantarflexion, inversion or eversion, MMT: 5/5 in all 4 compartments, passive and active ROM in all 4 compartments intact - Neurological Exam Neurological Exam: Alert, Awake, Oriented x3 - Psychiatric Exam Psychiatric exam: Normal Affect, Normal Mood Assessment and Plan - Assessment and Plan (Free Text) Assessment: 41 y/o male with PMHx of DM and tobacco use seen with possible acute episode of a gout/pseudogout attack Plan: Patient seen and evaluated at bedside with attending Dr. Pool Vitals and labs reviewed (afebrile and WBC @ 5.9) MRI results reviewed - clinical presentation is not consistent with the MRI findings Uric acid levels ordered - WNL Patient encouraged to follow up with a media technician once discharged to manage peroneal tendonitis of the right foot Patient educated to rest, ice elevate right lower extremity Podiatry to follow patient while in house Thank you for the podiatry consult <Vivek Pool - Last Filed: 06/14/17 10:16> Objective - Vital Signs/Intake and Output Vital Signs (last 24 hours): Temp Pulse Resp BP Pulse Ox 97.6 F 63 18 124/86 95 06/14/17 08:11 06/14/17 08:11 06/14/17 08:11 06/14/17 08:11 06/14/17 08:11 Intake and Output: 06/14/17 06/14/17 06:59 18:59 Intake Total 480 420 Balance 480 420 - Medications Medications: Current Medications Acetaminophen (Tylenol 325mg Tab) 650 mg PO Q6H PRN PRN Reason: Fever >100.4 F Heparin Sodium (Porcine) (Heparin) 5,000 units SC Q8 [facility] PRN Reason: Protocol Last Admin: 06/14/17 05:02 Dose: 5,000 units Vancomycin HCl (Vancomycin 1gm) 1 gm in 250 mls @ 167 mls/hr IVPB Q12H [facility] PRN Reason: Protocol Last Admin: 06/14/17 02:52 Dose: 167 mls/hr Cefepime HCl (Maxipime 1gm) 1 gm in 100 mls @ 100 mls/hr IVPB Q8 [facility] PRN Reason: Protocol Stop: 06/21/17 14:01 Last Admin: 06/14/17 05:02 Dose: 100 mls/hr Insulin Human Lispro (Humalog Low) 0 units SC ACHS [facility] PRN Reason: Protocol Last Admin: 06/14/17 09:59 Dose: Not Given Ketorolac Tromethamine (Toradol) 30 mg IVP Q6 PRN PRN Reason: Pain, moderate (4-7) Morphine Sulfate (Morphine) 2 mg IVP Q4H PRN PRN Reason: Pain, severe (8-10) Nicotine (Nicoderm Cq) 1 patch TD DAILY [facility] Last Admin: 06/14/17 10:01 Dose: 1 patch Pantoprazole Sodium (Protonix Ec Tab) 40 mg PO DAILY [facility] Last Admin: 06/14/17 10:01 Dose: 40 mg - Labs Labs: 06/14/17 06:51 06/14/17 06:47 Attending/Attestation - Attestation I have personally seen and examined this patient.: Yes I have fully participated in the care of the patient.: Yes I have reviewed all pertinent clinical information, including history, physical exam and plan: Yes
--- NOTE | 2017-06-13 14:17 | PN ---
DATE: 06/13/2017 SUBJECTIVE: The patient is in bed in no acute distress, nontoxic. PHYSICAL EXAMINATION: VITAL SIGNS: Temperature is 97, blood pressure is 140/60, respiratory rate of 20. HEENT: Unremarkable. NECK: Supple. LUNGS: Have decreased breath sounds. HEART: Normal S1 and S2. ABDOMEN: Soft, nontender. LABORATORY EXAMINATION: Reveals a white count of 5.9, hemoglobin of 14, platelets of 199. Chemistries reveals a BUN of 9, creatinine of 0.6. C-reactive protein is greater than 15. Urinalysis is noted. Microbiology reveals the blood cultures have no growth. ASSESSMENT AND PLAN: A 41-year-old male with diabetes mellitus and right ankle cellulitis. We will check on the MRI to rule out osteomyelitis, and currently, the patient is on vancomycin and cefepime. It appears to be improving. Microbiology: Blood cultures are negative. The patient's sed rate is 16. C-reactive protein; however, is greater than 15 and should have arterial Dopplers. Dr. Dumont's note is reviewed. Venous Dopplers, no DVT. Will review MRI. Ko Delacruz MD
[2017-06-13] MEDS: Insulin Lispro (humaLOG) LOW Coverage SC SCH ×4 (14:23→22:09)
[2017-06-14] MEDS: Vancomycin 1gm in NS 250ml 1 GM/250 ML BAG IVPB SCH ×2 (02:52→15:04)
[2017-06-14 03:49] VITALS: RESP 18
[2017-06-14] MEDS: Cefepime 1gm in NS 100ml 1 GM/100 ML BAG IVPB SCH ×3 (05:02→22:36)
[2017-06-14 07:01] LABS: BASO # 0.08 K/mm3 (0.0-2.0); BASO % 1.2 % (0.0-3.0); EOS # 0.6 (0.0-0.7); EOS % 8.7 % (1.5-5.0); GRAN # 3.68 (1.4-6.5); GRAN % 54.4 % (50.0-68.0); HEMATOCRIT 42.3 % (42.0-52.0); LYMPH # 1.6 (1.2-3.4); LYMPH % 24.3 % (22.0-35.0); MEAN CELL VOLUME 88.3 fl (80.0-105.0); MEAN CORPUSCULAR HEMOGLOBIN 30.1 pg (25.0-35.0); MONO # 0.8 (0.1-0.6); MONO % 11.4 % (1.0-6.0); RED CELL DISTRIBUTION WIDTH 13.8 % (11.5-14.5); WHITE BLOOD COUNT 6.8 10^3/ul (4.5-11.0)
[2017-06-14 07:26] LABS: ALB/GLOB RATIO 1.4 (1.1-1.8); ALKALINE PHOSPHATASE 71 U/L (38-126); ALT/SGPT 26 U/L (7-56); AST/SGOT 19 U/L (17-59); BILIRUBIN,TOTAL 0.4 mg/dL (0.2-1.3); BLOOD UREA NITROGEN 11 mg/dL (7-21); CALCIUM 9.1 mg/dL (8.4-10.5); CARBON DIOXIDE 29 mmol/L (21-33); CHLORIDE 105 mmol/L (98-107); GFR AFRICAN-AMERICAN > 60; GLUCOSE,RANDOM 106 mg/dL (70-110); POTASSIUM 4.1 mmol/L (3.6-5.0); SODIUM 141 mmol/L (132-148); TOTAL PROTEIN 6.6 g/dL (5.8-8.3)
--- NOTE | 2017-06-14 09:54 | CP.PCM.PN ---
<Mayo Walsh - Last Filed: 06/14/17 09:50> Subjective - Date & Time of Evaluation Date of Evaluation: 06/14/17 Time of Evaluation: 09:50 - Subjective Subjective: Podiatry progress note for Dr. Pool: 41 year old male was seen at bedside for right foot pain. Patient is seen resting comfortably in bed, AAO x3 and in NAD. He states that he right foot pain has descreased. He reports still experiencing pain with ambulation. Denies trauma or recent falls. Denies n/v/sob/cp/chills or f. Patient denies other pedal complaints at this time. Objective - Vital Signs/Intake and Output Vital Signs (last 24 hours): Temp Pulse Resp BP Pulse Ox 97.6 F 63 18 124/86 95 06/14/17 08:11 06/14/17 08:11 06/14/17 08:11 06/14/17 08:11 06/14/17 08:11 Intake and Output: 06/14/17 06/14/17 06:59 18:59 Intake Total 480 420 Balance 480 420 - Medications Medications: Current Medications Acetaminophen (Tylenol 325mg Tab) 650 mg PO Q6H PRN PRN Reason: Fever >100.4 F Heparin Sodium (Porcine) (Heparin) 5,000 units SC Q8 [facility] PRN Reason: Protocol Last Admin: 06/14/17 05:02 Dose: 5,000 units Vancomycin HCl (Vancomycin 1gm) 1 gm in 250 mls @ 167 mls/hr IVPB Q12H [facility] PRN Reason: Protocol Last Admin: 06/14/17 02:52 Dose: 167 mls/hr Cefepime HCl (Maxipime 1gm) 1 gm in 100 mls @ 100 mls/hr IVPB Q8 [facility] PRN Reason: Protocol Stop: 06/21/17 14:01 Last Admin: 06/14/17 05:02 Dose: 100 mls/hr Insulin Human Lispro (Humalog Low) 0 units SC ACHS [facility] PRN Reason: Protocol Last Admin: 06/13/17 22:09 Dose: Not Given Ketorolac Tromethamine (Toradol) 30 mg IVP Q6 PRN PRN Reason: Pain, moderate (4-7) Morphine Sulfate (Morphine) 2 mg IVP Q4H PRN PRN Reason: Pain, severe (8-10) Nicotine (Nicoderm Cq) 1 patch TD DAILY [facility] Last Admin: 06/13/17 09:53 Dose: 1 patch Pantoprazole Sodium (Protonix Ec Tab) 40 mg PO DAILY [facility] Last Admin: 06/13/17 09:53 Dose: 40 mg - Labs Labs: 06/14/17 06:51 06/14/17 06:47 - Constitutional Appears: Well, Non-toxic, No Acute Distress - Extremities Exam Additional comments: Right lower extremity focused exam: VASC: DP/PT pulses are palpable 2/4, Cap refill time: < 3 sec to all digits, Temp gradient: warm to cool from proximal to distal, mild non-pitting edema noted on the dorsolateral aspect of the right foot proximal to the ankle joint appears to be resolving from yesterday DERM: no open lesions, erythema noted proximal to the ankle joint on dorsolateral aspect of the right foot which appears to be resolving from yesterday NEURO: Protective sensation grossly intact ORTHO: minimal pain on palpation posterior to lateral malleolus, no pain on palpation at the base of the 5th metatarsal, no pain on palpation during dorsiflexion, plantarflexion, inversion or eversion, MMT: 5/5 in all 4 compartments, passive and active ROM in all 4 compartments intact - Neurological Exam Neurological Exam: Alert, Awake, Oriented x3 - Psychiatric Exam Psychiatric exam: Normal Affect, Normal Mood Assessment and Plan - Assessment and Plan (Free Text) Assessment: 41 year old male seen and evaluated at bedside for peroneal tendonitis and resolving right foot pain Plan: Patient seen and evaluated at bedside with attending Dr. Pool Vitals and labs reviewed (afebrile and WBC @ 6.8) MRI results reviewed - clinical presentation is not consistent with the MRI findings Uric acid levels ordered - WNL Patient encouraged to follow up with a paper machine supervisor once discharged to manage peroneal tendonitis of the right foot Patient educated to rest, ice elevate right lower extremity Ordered surgical shoe- to be worn with ambulation right foot Podiatry to follow patient while in house Thank you for the podiatry consult <Vivek Pool - Last Filed: 06/14/17 10:18> Objective - Vital Signs/Intake and Output Vital Signs (last 24 hours): Temp Pulse Resp BP Pulse Ox 97.6 F 63 18 124/86 95 06/14/17 08:11 06/14/17 08:11 06/14/17 08:11 06/14/17 08:11 06/14/17 08:11 Intake and Output: 06/14/17 06/14/17 06:59 18:59 Intake Total 480 420 Balance 480 420 - Medications Medications: Current Medications Acetaminophen (Tylenol 325mg Tab) 650 mg PO Q6H PRN PRN Reason: Fever >100.4 F Heparin Sodium (Porcine) (Heparin) 5,000 units SC Q8 [facility] PRN Reason: Protocol Last Admin: 06/14/17 05:02 Dose: 5,000 units Vancomycin HCl (Vancomycin 1gm) 1 gm in 250 mls @ 167 mls/hr IVPB Q12H [facility] PRN Reason: Protocol Last Admin: 06/14/17 02:52 Dose: 167 mls/hr Cefepime HCl (Maxipime 1gm) 1 gm in 100 mls @ 100 mls/hr IVPB Q8 [facility] PRN Reason: Protocol Stop: 06/21/17 14:01 Last Admin: 06/14/17 05:02 Dose: 100 mls/hr Insulin Human Lispro (Humalog Low) 0 units SC ACHS [facility] PRN Reason: Protocol Last Admin: 06/14/17 09:59 Dose: Not Given Ketorolac Tromethamine (Toradol) 30 mg IVP Q6 PRN PRN Reason: Pain, moderate (4-7) Morphine Sulfate (Morphine) 2 mg IVP Q4H PRN PRN Reason: Pain, severe (8-10) Nicotine (Nicoderm Cq) 1 patch TD DAILY [facility] Last Admin: 06/14/17 10:01 Dose: 1 patch Pantoprazole Sodium (Protonix Ec Tab) 40 mg PO DAILY [facility] Last Admin: 06/14/17 10:01 Dose: 40 mg - Labs Labs: 06/14/17 06:51 06/14/17 06:47 Attending/Attestation - Attestation I have personally seen and examined this patient.: Yes I have fully participated in the care of the patient.: Yes I have reviewed all pertinent clinical information, including history, physical exam and plan: Yes
[2017-06-14] MEDS: Insulin Lispro (humaLOG) LOW Coverage SC SCH ×4 (09:59→21:06)
[2017-06-14] MEDS: Pantoprazole 40 mg EC Tab PO SCH (10:01)
--- NOTE | 2017-06-14 12:41 | CP.PCM.DIS ---
Provider - Provider Date of Admission: 06/11/17 12:30 Attending physician: Kitty Messina MD Primary care physician: Stacy La MD Time Spent in preparation of Discharge (in minutes): 45 Diagnosis - Discharge Diagnosis (1) Diabetes Status: Acute Priority: Medium (2) Tobacco abuse Status: Acute Priority: Medium (3) Cellulitis Status: Acute Priority: Medium Hospital Course - Lab Results Lab Results: Most Recent Lab Values WBC 6.8 10^3/ul (4.5-11.0) 06/14/17 06:51 RBC 4.79 10^6/uL (3.5-6.1) 06/14/17 06:51 Hgb 14.4 g/dL (14.0-18.0) 06/14/17 06:51 Hct 42.3 % (42.0-52.0) 06/14/17 06:51 MCV 88.3 fl (80.0-105.0) 06/14/17 06:51 MCH 30.1 pg (25.0-35.0) 06/14/17 06:51 MCHC 34.0 g/dl (31.0-37.0) 06/14/17 06:51 RDW 13.8 % (11.5-14.5) 06/14/17 06:51 Plt Count 200 10^3/uL (120.0-450.0) 06/14/17 06:51 MPV 12.0 fl (7.0-11.0) H 06/14/17 06:51 Gran % 54.4 % (50.0-68.0) 06/14/17 06:51 Lymph % (Auto) 24.3 % (22.0-35.0) 06/14/17 06:51 Grant % (Auto) 11.4 % (1.0-6.0) H 06/14/17 06:51 Eos % (Auto) 8.7 % (1.5-5.0) H 06/14/17 06:51 Baso % (Auto) 1.2 % (0.0-3.0) 06/14/17 06:51 Gran # 3.68 (1.4-6.5) 06/14/17 06:51 Lymph # 1.6 (1.2-3.4) 06/14/17 06:51 Grant # 0.8 (0.1-0.6) H 06/14/17 06:51 Eos # 0.6 (0.0-0.7) 06/14/17 06:51 Baso # 0.08 K/mm3 (0.0-2.0) 06/14/17 06:51 ESR 16 mm/hr (0.0-15.0) H 06/11/17 10:10 Sodium 141 mmol/L (132-148) 06/14/17 06:47 Potassium 4.1 mmol/L (3.6-5.0) 06/14/17 06:47 Chloride 105 mmol/L (98-107) 06/14/17 06:47 Carbon Dioxide 29 mmol/L (21-33) 06/14/17 06:47 Anion Gap 11 (10-20) 06/14/17 06:47 BUN 11 mg/dL (7-21) 06/14/17 06:47 Creatinine 0.7 mg/dL (0.8-1.5) L 06/14/17 06:47 Est GFR ( Amer) > 60 06/14/17 06:47 Est GFR (Non-Af Amer) > 60 06/14/17 06:47 POC Glucose (mg/dL) 85 mg/dL (65-110) 06/14/17 11:09 Random Glucose 106 mg/dL (70-110) 06/14/17 06:47 Hemoglobin A1c 6.6 % (4.2-6.5) H 06/12/17 13:00 Uric Acid 5.4 mg/dL (3.5-8.5) 06/12/17 07:30 Calcium 9.1 mg/dL (8.4-10.5) 06/14/17 06:47 Phosphorus 3.3 mg/dL (2.5-4.5) 06/12/17 07:30 Magnesium 1.9 mg/dL (1.7-2.2) 06/12/17 07:30 Total Bilirubin 0.4 mg/dL (0.2-1.3) 06/14/17 06:47 AST 19 U/L (17-59) 06/14/17 06:47 ALT 26 U/L (7-56) 06/14/17 06:47 Alkaline Phosphatase 71 U/L (38-126) 06/14/17 06:47 C-React Prot High Sens > 15.00 mg/L (1.00-3.00) H 06/12/17 12:20 Total Protein 6.6 g/dL (5.8-8.3) 06/14/17 06:47 Albumin 3.8 g/dL (3.0-4.8) 06/14/17 06:47 Globulin 2.8 gm/dL 06/14/17 06:47 Albumin/Globulin Ratio 1.4 (1.1-1.8) 06/14/17 06:47 Triglycerides 170 mg/dL (35-160) H 06/11/17 10:00 Cholesterol 201 mg/dL (130-200) H 06/11/17 10:00 LDL Cholesterol Direct 138 mg/dL (0-129) H 06/11/17 10:00 HDL Cholesterol 48 mg/dL (29-60) 06/11/17 10:00 Procalcitonin < 0.05 NG/ML (0.19-0.49) L 06/12/17 07:30 Urine Color Yellow (YELLOW) 06/11/17 20:20 Urine Appearance Clear (CLEAR) 06/11/17 20:20 Urine pH 6.0 (4.7-8.0) 06/11/17 20:20 Ur Specific [place] >= 1.030 (1.005-1.035) 06/11/17 20:20 Urine Protein 100 mg/dL (<30 mg/dL) H 06/11/17 20:20 Urine Glucose (UA) Negative mg/dL (NEGATIVE) 06/11/17 20:20 Urine Ketones Trace mg/dL (NEGATIVE) H 06/11/17 20:20 Urine Blood Negative (NEGATIVE) 06/11/17 20:20 Urine Nitrate Negative (NEGATIVE) 06/11/17 20:20 Urine Bilirubin Negative (NEGATIVE) 06/11/17 20:20 Urine Urobilinogen 1.0 E.U./dL (<1 E.U./dL) H 06/11/17 20:20 Ur Leukocyte Esterase Negative Vianca/uL (NEGATIVE) 06/11/17 20:20 Urine RBC 0 - 2 /hpf (0-2) 06/11/17 20:20 Urine WBC 1 - 3 /hpf (0-6) 06/11/17 20:20 Ur Epithelial Cells 0 - 2 /hpf (0-5) 06/11/17 20:20 Urine Bacteria Few (NEG) 06/11/17 20:20 - Hospital Course Hospital Course: Patient is a 41-year-old male with a past medical history of diabetes who presented to the ED for evaluation and treatment of right foot pain. With the use of physical examinations, lab work, and imaging the patient was diagnosed with and treated for right foot cellulitis, diabetes, and tobacco abuse. During their hospital stay the patient was seen by podiatry and their recommendations were both appreciated and utilized in the care for this patient. During their hospital stay the patient underwent a right foot xray, right ankle xray, extremity ultrasounds, and right foot MRI, which were reviewed, appreciated, and utilized in the management of the patients clinical course. Patient was treated with antibiotics, pain medications, insulin amongst other empiric/ therapeutic medications. At this time the patient is medically stable for discharge. Patient understands and appreciates discharge plan. Patient instructed to follow up with primary care physicians and referrals within three to five days from discharge. Furthermore, the patient is instructed to take medications as prescribed and to return to emergency room for evaluation of intractable headache, fever, chills, dizziness, chest pain, shortness of breath , abdominal pain, nausea, vomiting, diarrhea, constipation, and urinary symptoms. This is a brief summary of the patients hospital course. Please see patient chart for full details. Discharge Exam - Additional Findings Additional findings: Head: Present: Atraumatic, NC Mouth: Present: Moist Mucous Membranes Neck: Present: Normal Range of Motion Respiratory/Chest: Present: Clear to Auscultation, Good Air Exchange. No: Respiratory Distress, Accessory Muscle Use Cardiovascular: Present: Regular Rate and Rhythm, Normal S1, S2. No: Murmurs Abdomen: soft, NTTP, no guarding, no rebound tenderness Lower Extremity: Present: DP pulses intact bilaterally, Normal ROM, mild tenderness to palpation right foot/ankle; + mild erythema noted to lateral aspect of foot. ; full passive rom of ankle with pain; sensation and distal pulses intact. cap refill < 2 seconds Neurological: Patient is awake, alert, responds to verbal stimuli, answers questions appropriately, follows commands, and moves extremities past midline Skin: Present: Warm, Dry Psychiatric: Present: Alert, Oriented x 3 Discharge Plan - Follow Up Plan Condition: FAIR Disposition: HOME/ ROUTINE Patient education suggested?: Yes Additional Instructions: Patient Instructions: Take medications as prescribed. Follow up with PMD and referrals within three to five days from discharge. Return to the emergency room for evaluation of intractable headache, fever, chills, dizziness, chest pain, shortness of breath, abdominal pain, nausea, vomiting, diarrhea, constipation, and urinary symptoms. Referrals: Stacy La MD [Primary Care Provider] - Vivek Pool DPM [Staff Provider] -
--- NOTE | 2017-06-14 14:47 | CP.PCM.PN ---
<Driss Mims - Last Filed: 06/14/17 14:43> Subjective - Date & Time of Evaluation Date of Evaluation: 06/14/17 Time of Evaluation: 09:30 - Subjective Subjective: Subjective: Patient seen and examined at bedside. Resting comfortably in bed. No acute overnight events. Patient states right foot pain, swelling, and redness has significantly improved relative to baseline. Able to ambulate with assistance with less difficulty. Offers no new complaints at this time. Denies f/c/cp/sob/ abdominal pain/n/v/d/c/urinary sxs. Physical Examination: Head: Present: Atraumatic, NC Mouth: Present: Moist Mucous Membranes Neck: Present: Normal Range of Motion Respiratory/Chest: Present: Clear to Auscultation, Good Air Exchange. No: Respiratory Distress, Accessory Muscle Use Cardiovascular: Present: Regular Rate and Rhythm, Normal S1, S2. No: Murmurs Abdomen: soft, NTTP, no guarding, no rebound tenderness Lower Extremity: Present: DP pulses intact bilaterally, Normal ROM, mild Tenderness to palpation right foot/ankle; + trace edema and improved erythema noted to lateral aspect of foot. + edema noted to lateral malleolus; full passive rom of ankle with pain; sensation and distal pulses intact. cap refill < 2 seconds Neurological: Patient is awake, alert, responds to verbal stimuli, answers questions appropriately, follows commands, and moves extremities past midline Skin: Present: Warm, Dry Psychiatric: Present: Alert, Oriented x 3 Assessment and Plan: Patient is a 41-year-old male with a past medical history of diabetes who presented to the ED for evaluation and treatment of right foot pain. Right Foot and Ankle Cellulitis - c/w cefepime and vancomycin - foot MRI with and without contrast- 4th and 5th digits show signs of OM vs arthropathy vs trauma, will speak with podo to determine if patient needs to be treated for OM - blood cultures negative - pain control with toradol prn and morphine prn - prn tylenol for fever - ID consult- appreciate recs - Podo consult- appreciate recs- Uric acid levels ordered for gout vs pseudogout - uric acid WNL, surgical shoe ordered- awaiting arrival, follow up with a cruise staff member once discharged to manage peroneal tendonitis of the right foot Diabetes - noncompliant with home meds - fingersticks ACHS - ISS - started patient on metformin - A1C 6.6 noted - lipid panel- TAG and CHL elevated, will consider starting patient on stain if agreeable- encouraged healthy diet and exercise - carb consistent diet - diabetic education - social work consult so patient can avoid outpatient antidiabetic medication Tobacco Abuse - encouraged smoking cessation, education on danger of smoking/chewing tobacco products provided - nicotine patch PPX - protonix - subq heparin Patient seen, case discussed with, and plan approved by attending physician, Dr. Messina. Objective - Vital Signs/Intake and Output Vital Signs (last 24 hours): Temp Pulse Resp BP Pulse Ox 97.6 F 63 18 124/86 95 06/14/17 08:11 06/14/17 08:11 06/14/17 08:11 06/14/17 08:11 06/14/17 08:11 Intake and Output: 06/14/17 06/14/17 06:59 18:59 Intake Total 480 1000 Balance 480 1000 - Medications Medications: Current Medications Acetaminophen (Tylenol 325mg Tab) 650 mg PO Q6H PRN PRN Reason: Fever >100.4 F Heparin Sodium (Porcine) (Heparin) 5,000 units SC Q8 [facility] PRN Reason: Protocol Last Admin: 06/14/17 05:02 Dose: 5,000 units Vancomycin HCl (Vancomycin 1gm) 1 gm in 250 mls @ 167 mls/hr IVPB Q12H [facility]ELINO PRN Reason: Protocol Last Admin: 06/14/17 02:52 Dose: 167 mls/hr Cefepime HCl (Maxipime 1gm) 1 gm in 100 mls @ 100 mls/hr IVPB Q8 [facility]ELINO PRN Reason: Protocol Stop: 06/21/17 14:01 Last Admin: 06/14/17 05:02 Dose: 100 mls/hr Insulin Human Lispro (Humalog Low) 0 units SC ACHS [facility]ELINO PRN Reason: Protocol Last Admin: 06/14/17 09:59 Dose: Not Given Ketorolac Tromethamine (Toradol) 30 mg IVP Q6 PRN PRN Reason: Pain, moderate (4-7) Metformin HCl (Glucophage) 500 mg PO DAILY [facility] Morphine Sulfate (Morphine) 2 mg IVP Q4H PRN PRN Reason: Pain, severe (8-10) Nicotine (Nicoderm Cq) 1 patch TD DAILY [facility] Last Admin: 06/14/17 10:01 Dose: 1 patch Pantoprazole Sodium (Protonix Ec Tab) 40 mg PO DAILY [facility] Last Admin: 06/14/17 10:01 Dose: 40 mg - Labs Labs: 06/14/17 06:51 06/14/17 06:47 Assessment and Plan (1) Diabetes Status: Acute (2) Tobacco abuse Status: Acute (3) Cellulitis Status: Acute <Kitty Messina - Last Filed: 06/14/17 18:42> Objective - Vital Signs/Intake and Output Vital Signs (last 24 hours): Temp Pulse Resp BP Pulse Ox 97.8 F 70 18 127/87 99 06/14/17 16:00 06/14/17 16:00 06/14/17 16:00 06/14/17 16:00 06/14/17 16:00 Intake and Output: 06/14/17 06/14/17 06:59 18:59 Intake Total 480 1000 Balance 480 1000 - Medications Medications: Current Medications Acetaminophen (Tylenol 325mg Tab) 650 mg PO Q6H PRN PRN Reason: Fever >100.4 F Heparin Sodium (Porcine) (Heparin) 5,000 units SC Q8 [facility]INO PRN Reason: Protocol Last Admin: 06/14/17 15:04 Dose: 5,000 units Vancomycin HCl (Vancomycin 1gm) 1 gm in 250 mls @ 167 mls/hr IVPB Q12H [facility] PRN Reason: Protocol Last Admin: 06/14/17 15:04 Dose: 167 mls/hr Cefepime HCl (Maxipime 1gm) 1 gm in 100 mls @ 100 mls/hr IVPB Q8 [facility] PRN Reason: Protocol Stop: 06/21/17 14:01 Last Admin: 06/14/17 16:44 Dose: 100 mls/hr Insulin Human Lispro (Humalog Low) 0 units SC ACHS [facility] PRN Reason: Protocol Last Admin: 06/14/17 16:42 Dose: Not Given Ketorolac Tromethamine (Toradol) 30 mg IVP Q6 PRN PRN Reason: Pain, moderate (4-7) Metformin HCl (Glucophage) 500 mg PO DAILY [facility] Morphine Sulfate (Morphine) 2 mg IVP Q4H PRN PRN Reason: Pain, severe (8-10) Nicotine (Nicoderm Cq) 1 patch TD DAILY [facility] Last Admin: 10/16/17 10:01 Dose: 1 patch Pantoprazole Sodium (Protonix Ec Tab) 40 mg PO DAILY [facility] Last Admin: 06/14/17 10:01 Dose: 40 mg - Labs Labs: 06/14/17 06:51 06/14/17 06:47 Attending/Attestation - Attestation I have personally seen and examined this patient.: Yes I have fully participated in the care of the patient.: Yes I have reviewed all pertinent clinical information, including history, physical exam and plan: Yes Notes (Text): 06/14/17 18:39 Attending note; Patient seen and examined with resident. Patient is a 41 year old male with history of DM-2, non compliant with medications due to lack of insurance is admitted for evaluation of right foot and ankle cellulitis. MRI showed suspicion of osteomyelitis. continue vancomycin and cefepime. Hemoglobin A1c 6.6 .dietitian evaluation requested . Supplies given by diabetic nurse educator . Started on low-dose metformin. Podiatry evaluation appreciated. Waiting for boot ordered by podiatry. Needs outpatient podiatry follow-up. psychiatric social worker supervisor evaluation appreciated Possible discharge home tomorrow. Active smoker ; Tobacco cessation counselling provided. Continue nicotine patch. Life style modification recommended for obesity. Upon discharge patient will follow up with [facility] clinic.
--- NOTE | 2017-06-14 14:52 | CP.PCM.PN ---
Subjective - Date & Time of Evaluation Date of Evaluation: 06/14/17 Time of Evaluation: 13:30 - Subjective Subjective: Feeling much better, pain on the right foot and ankle is much improved. No fevers overnight. Objective - Vital Signs/Intake and Output Vital Signs (last 24 hours): Temp Pulse Resp BP Pulse Ox 97.6 F 63 18 124/86 95 06/14/17 08:11 06/14/17 08:11 06/14/17 08:11 06/14/17 08:11 06/14/17 08:11 Intake and Output: 06/14/17 06/14/17 06:59 18:59 Intake Total 480 420 Balance 480 420 - Medications Medications: Current Medications Acetaminophen (Tylenol 325mg Tab) 650 mg PO Q6H PRN PRN Reason: Fever >100.4 F Heparin Sodium (Porcine) (Heparin) 5,000 units SC Q8 [facility]ELINO PRN Reason: Protocol Last Admin: 06/14/17 05:02 Dose: 5,000 units Vancomycin HCl (Vancomycin 1gm) 1 gm in 250 mls @ 167 mls/hr IVPB Q12H [facility] PRN Reason: Protocol Last Admin: 06/14/17 02:52 Dose: 167 mls/hr Cefepime HCl (Maxipime 1gm) 1 gm in 100 mls @ 100 mls/hr IVPB Q8 [facility] PRN Reason: Protocol Stop: 06/21/17 14:01 Last Admin: 06/14/17 05:02 Dose: 100 mls/hr Insulin Human Lispro (Humalog Low) 0 units SC ACHS [facility] PRN Reason: Protocol Last Admin: 06/14/17 09:59 Dose: Not Given Ketorolac Tromethamine (Toradol) 30 mg IVP Q6 PRN PRN Reason: Pain, moderate (4-7) Metformin HCl (Glucophage) 500 mg PO BID [facility] Last Admin: 06/14/17 10:55 Dose: 500 mg Morphine Sulfate (Morphine) 2 mg IVP Q4H PRN PRN Reason: Pain, severe (8-10) Nicotine (Nicoderm Cq) 1 patch TD DAILY [facility] Last Admin: 06/14/17 10:01 Dose: 1 patch Pantoprazole Sodium (Protonix Ec Tab) 40 mg PO DAILY [facility] Last Admin: 06/14/17 10:01 Dose: 40 mg - Labs Labs: 06/14/17 06:51 06/14/17 06:47 - Constitutional Appears: Non-toxic, No Acute Distress - Head Exam Head Exam: NORMAL INSPECTION - ENT Exam ENT Exam: Mucous Membranes Moist - Neck Exam Neck Exam: absent: Lymphadenopathy, Meningismus - Respiratory Exam Respiratory Exam: Decreased Breath Sounds - Cardiovascular Exam Cardiovascular Exam: +S1, +S2 - GI/Abdominal Exam GI & Abdominal Exam: Soft. absent: Tenderness - Extremities Exam Additional comments: right ankle with decreased swelling Assessment and Plan - Assessment and Plan (Free Text) Plan: Assessment right ankle cellulitis with tendinitis and tenosynovitis DM obesity with BMI 38 Plan Continue Vancomycin and Cefepime day 3; cultures have been negative; MRI findings reviewed; when ready for discharge, he can be switched to PO Doxycycline and Po Augmentin for another 7 days with outpatient follow up with PMD Podiatry is following and they recommend that the patient follows up with his regular [employer] Attendant on discharge
[2017-06-15] MEDS: Vancomycin 1gm in NS 250ml 1 GM/250 ML BAG IVPB SCH (01:48)
[2017-06-15] MEDS: Cefepime 1gm in NS 100ml 1 GM/100 ML BAG IVPB SCH (05:11)
[2017-06-15 06:29] LABS: BASO # 0.08 K/mm3 (0.0-2.0); BASO % 1.3 % (0.0-3.0); EOS # 0.5 (0.0-0.7); EOS % 8.8 % (1.5-5.0); GRAN # 3.1 (1.4-6.5); GRAN % 51.5 % (50.0-68.0); HEMATOCRIT 40.7 % (42.0-52.0); LYMPH # 1.7 (1.2-3.4); LYMPH % 28.1 % (22.0-35.0); MEAN CELL VOLUME 88.1 fl (80.0-105.0); MEAN CORPUSCULAR HEMOGLOBIN 29.9 pg (25.0-35.0); MEAN CORPUSCULAR HGB CONC 33.9 g/dl (31.0-37.0); MEAN PLATELET VOLUME 11.2 fl (7.0-11.0); MONO # 0.6 (0.1-0.6); MONO % 10.3 % (1.0-6.0); RED CELL DISTRIBUTION WIDTH 13.8 % (11.5-14.5)
[2017-06-15 06:53] LABS: ALB/GLOB RATIO 1.3 (1.1-1.8); ALKALINE PHOSPHATASE 64 U/L (38-126); ALT/SGPT 30 U/L (7-56); AST/SGOT 23 U/L (17-59); BILIRUBIN,TOTAL 0.4 mg/dL (0.2-1.3); BLOOD UREA NITROGEN 10 mg/dL (7-21); CALCIUM 9.1 mg/dL (8.4-10.5); CARBON DIOXIDE 29 mmol/L (21-33); CHLORIDE 104 mmol/L (98-107); GFR AFRICAN-AMERICAN > 60; GLUCOSE,RANDOM 104 mg/dL (70-110); POTASSIUM 4.1 mmol/L (3.6-5.0); SODIUM 142 mmol/L (132-148); TOTAL PROTEIN 6.5 g/dL (5.8-8.3)
[2017-06-15 07:59] VITALS: BP 117/83; PULSE 65; TEMP 98.3; O2SAT 97
[2017-06-15] MEDS: Insulin Lispro (humaLOG) LOW Coverage SC SCH ×2 (08:19→12:58)
[2017-06-15] MEDS: Pantoprazole 40 mg EC Tab PO SCH (10:03)
--- NOTE | 2017-06-15 11:40 | CP.PCM.DIS ---
<Driss Mims - Last Filed: 06/15/17 11:37> Provider - Provider Date of Admission: 06/11/17 12:30 Attending physician: Kitty Messina MD Primary care physician: Stacy La MD Time Spent in preparation of Discharge (in minutes): 45 Diagnosis - Discharge Diagnosis (1) Diabetes Status: Acute Priority: Medium (2) Tobacco abuse Status: Acute Priority: Medium (3) Cellulitis Status: Acute Priority: Medium Hospital Course - Lab Results Lab Results: Most Recent Lab Values WBC 6.0 10^3/ul (4.5-11.0) 06/15/17 06:24 RBC 4.62 10^6/uL (3.5-6.1) 06/15/17 06:24 Hgb 13.8 g/dL (14.0-18.0) L 06/15/17 06:24 Hct 40.7 % (42.0-52.0) L 06/15/17 06:24 MCV 88.1 fl (80.0-105.0) 06/15/17 06:24 MCH 29.9 pg (25.0-35.0) 06/15/17 06:24 MCHC 33.9 g/dl (31.0-37.0) 06/15/17 06:24 RDW 13.8 % (11.5-14.5) 06/15/17 06:24 Plt Count 195 10^3/uL (120.0-450.0) 06/15/17 06:24 MPV 11.2 fl (7.0-11.0) H 06/15/17 06:24 Gran % 51.5 % (50.0-68.0) 06/15/17 06:24 Lymph % (Auto) 28.1 % (22.0-35.0) 06/15/17 06:24 [place] % (Auto) 10.3 % (1.0-6.0) H 06/15/17 06:24 Eos % (Auto) 8.8 % (1.5-5.0) H 06/15/17 06:24 Baso % (Auto) 1.3 % (0.0-3.0) 06/15/17 06:24 Gran # 3.10 (1.4-6.5) 06/15/17 06:24 Lymph # 1.7 (1.2-3.4) 06/15/17 06:24 [place] # 0.6 (0.1-0.6) 06/15/17 06:24 Eos # 0.5 (0.0-0.7) 06/15/17 06:24 Baso # 0.08 K/mm3 (0.0-2.0) 06/15/17 06:24 ESR 16 mm/hr (0.0-15.0) H 06/11/17 10:10 Sodium 142 mmol/L (132-148) 06/15/17 06:24 Potassium 4.1 mmol/L (3.6-5.0) 06/15/17 06:24 Chloride 104 mmol/L (98-107) 06/15/17 06:24 Carbon Dioxide 29 mmol/L (21-33) 06/15/17 06:24 Anion Gap 13 (10-20) 06/15/17 06:24 BUN 10 mg/dL (7-21) 06/15/17 06:24 Creatinine 0.7 mg/dL (0.8-1.5) L 06/15/17 06:24 Est GFR ( Amer) > 60 06/15/17 06:24 Est GFR (Non-Af Amer) > 60 06/15/17 06:24 POC Glucose (mg/dL) 59 mg/dL (65-110) L 06/15/17 11:00 Random Glucose 104 mg/dL (70-110) 06/15/17 06:24 Hemoglobin A1c 6.6 % (4.2-6.5) H 06/12/17 13:00 Uric Acid 5.4 mg/dL (3.5-8.5) 06/12/17 07:30 Calcium 9.1 mg/dL (8.4-10.5) 06/15/17 06:24 Phosphorus 3.3 mg/dL (2.5-4.5) 06/12/17 07:30 Magnesium 1.9 mg/dL (1.7-2.2) 06/12/17 07:30 Total Bilirubin 0.4 mg/dL (0.2-1.3) 06/15/17 06:24 AST 23 U/L (17-59) 06/15/17 06:24 ALT 30 U/L (7-56) 06/15/17 06:24 Alkaline Phosphatase 64 U/L (38-126) 06/15/17 06:24 C-React Prot High Sens > 15.00 mg/L (1.00-3.00) H 06/12/17 12:20 Total Protein 6.5 g/dL (5.8-8.3) 06/15/17 06:24 Albumin 3.7 g/dL (3.0-4.8) 06/15/17 06:24 Globulin 2.8 gm/dL 06/15/17 06:24 Albumin/Globulin Ratio 1.3 (1.1-1.8) 06/15/17 06:24 Triglycerides 170 mg/dL (35-160) H 06/11/17 10:00 Cholesterol 201 mg/dL (130-200) H 06/11/17 10:00 LDL Cholesterol Direct 138 mg/dL (0-129) H 06/11/17 10:00 HDL Cholesterol 48 mg/dL (29-60) 06/11/17 10:00 Procalcitonin < 0.05 NG/ML (0.19-0.49) L 06/12/17 07:30 Urine Color Yellow (YELLOW) 06/11/17 20:20 Urine Appearance Clear (CLEAR) 06/11/17 20:20 Urine pH 6.0 (4.7-8.0) 06/11/17 20:20 Ur Specific [place] >= 1.030 (1.005-1.035) 06/11/17 20:20 Urine Protein 100 mg/dL (<30 mg/dL) H 06/11/17 20:20 Urine Glucose (UA) Negative mg/dL (NEGATIVE) 06/11/17 20:20 Urine Ketones Trace mg/dL (NEGATIVE) H 06/11/17 20:20 Urine Blood Negative (NEGATIVE) 06/11/17 20:20 Urine Nitrate Negative (NEGATIVE) 06/11/17 20:20 Urine Bilirubin Negative (NEGATIVE) 06/11/17 20:20 Urine Urobilinogen 1.0 E.U./dL (<1 E.U./dL) H 06/11/17 20:20 Ur Leukocyte Esterase Negative Vianca/uL (NEGATIVE) 06/11/17 20:20 Urine RBC 0 - 2 /hpf (0-2) 06/11/17 20:20 Urine WBC 1 - 3 /hpf (0-6) 06/11/17 20:20 Ur Epithelial Cells 0 - 2 /hpf (0-5) 06/11/17 20:20 Urine Bacteria Few (NEG) 06/11/17 20:20 HIV 1&2 Ag/Ab, 4th Gen Nonreactive (Nonreactive) 06/12/17 12:20 - Hospital Course Hospital Course: Patient is a 41-year-old male with a past medical history of diabetes who presented to the ED for evaluation and treatment of right foot pain. With the use of physical examinations, lab work, and imaging the patient was diagnosed with and treated for right foot cellulitis, diabetes, and tobacco abuse. During their hospital stay the patient was seen by podiatry and their recommendations were both appreciated and utilized in the care for this patient. During their hospital stay the patient underwent a right foot xray, right ankle xray, extremity ultrasounds, and right foot MRI, which were reviewed, appreciated, and utilized in the management of the patients clinical course. Patient was treated with antibiotics, pain medications, insulin amongst other empiric/ therapeutic medications. At this time the patient is medically stable for discharge. Patient understands and appreciates discharge plan. Patient instructed to follow up with primary care physicians and referrals within three to five days from discharge. Furthermore, the patient is instructed to take medications as prescribed and to return to emergency room for evaluation of intractable headache, fever, chills, dizziness, chest pain, shortness of breath , abdominal pain, nausea, vomiting, diarrhea, constipation, and urinary symptoms. This is a brief summary of the patients hospital course. Please see patient chart for full details. Discharge Exam - Head Exam Head Exam: NORMAL INSPECTION - Additional Findings Additional findings: Head: Present: Atraumatic, NC Mouth: Present: Moist Mucous Membranes Neck: Present: Normal Range of Motion Respiratory/Chest: Present: Clear to Auscultation, Good Air Exchange. No: Respiratory Distress, Accessory Muscle Use Cardiovascular: Present: Regular Rate and Rhythm, Normal S1, S2. No: Murmurs Abdomen: soft, NTTP, no guarding, no rebound tenderness Lower Extremity: Present: DP pulses intact bilaterally, Normal ROM, mild tenderness to palpation right foot/ankle; + mild erythema noted to lateral aspect of foot. ; full passive rom of ankle with pain; sensation and distal pulses intact. cap refill < 2 seconds Neurological: Patient is awake, alert, responds to verbal stimuli, answers questions appropriately, follows commands, and moves extremities past midline Skin: Present: Warm, Dry Psychiatric: Present: Alert, Oriented x 3 Discharge Plan - Discharge Medications Prescriptions: Cephalexin [cephalexin] 500 mg PO BID 7 Days cap Doxycycline Hyclate [Doryx] 100 mg PO BID 7 Days cap metFORMIN [glucOPHAGE] 500 mg PO DAILY 14 Days tab - Follow Up Plan Condition: FAIR Disposition: HOME/ ROUTINE Patient education suggested?: Yes Instructions: Pneumococcal Vaccine for Adults (DC), Cellulitis (DC), Diabetes Mellitus Type 2 in Adults (DC), Influenza Vaccine (DC), Fall Prevention (DC) Additional Instructions: Patient Instructions: Take medications as prescribed. Follow up with [facility] [place] [facility]. call [phone] for appointment. follow-up with wound care/podiatry with Dr. vickers On Wednesday06/21/17 at 8 AM. Please register before you go. follow-up with diabetic nurse educator Ana Hodge. Check fingerstick closely at home. Return to the emergency room for evaluation of intractable headache, fever, chills, dizziness, chest pain, shortness of breath, abdominal pain, nausea, vomiting, diarrhea, constipation, and urinary symptoms. Referrals: Stacy La MD [Primary Care Provider] - Vivek Vickers DPM [Staff Provider] - <Kitty Messina - Last Filed: 06/15/17 17:07> Provider - Provider Date of Admission: 06/11/17 12:30 Attending physician: Kitty Messina MD Primary care physician: Stacy La MD Hospital Course - Lab Results Lab Results: Most Recent Lab Values WBC 6.0 10^3/ul (4.5-11.0) 06/15/17 06:24 RBC 4.62 10^6/uL (3.5-6.1) 06/15/17 06:24 Hgb 13.8 g/dL (14.0-18.0) L 06/15/17 06:24 Hct 40.7 % (42.0-52.0) L 06/15/17 06:24 MCV 88.1 fl (80.0-105.0) 06/15/17 06:24 MCH 29.9 pg (25.0-35.0) 06/15/17 06:24 MCHC 33.9 g/dl (31.0-37.0) 06/15/17 06:24 RDW 13.8 % (11.5-14.5) 06/15/17 06:24 Plt Count 195 10^3/uL (120.0-450.0) 06/15/17 06:24 MPV 11.2 fl (7.0-11.0) H 06/15/17 06:24 Gran % 51.5 % (50.0-68.0) 06/15/17 06:24 Lymph % (Auto) 28.1 % (22.0-35.0) 06/15/17 06:24 [place] % (Auto) 10.3 % (1.0-6.0) H 06/15/17 06:24 Eos % (Auto) 8.8 % (1.5-5.0) H 06/15/17 06:24 Baso % (Auto) 1.3 % (0.0-3.0) 06/15/17 06:24 Gran # 3.10 (1.4-6.5) 06/15/17 06:24 Lymph # 1.7 (1.2-3.4) 06/15/17 06:24 [place] # 0.6 (0.1-0.6) 06/15/17 06:24 Eos # 0.5 (0.0-0.7) 06/15/17 06:24 Baso # 0.08 K/mm3 (0.0-2.0) 06/15/17 06:24 ESR 16 mm/hr (0.0-15.0) H 06/11/17 10:10 Sodium 142 mmol/L (132-148) 06/15/17 06:24 Potassium 4.1 mmol/L (3.6-5.0) 06/15/17 06:24 Chloride 104 mmol/L (98-107) 06/15/17 06:24 Carbon Dioxide 29 mmol/L (21-33) 06/15/17 06:24 Anion Gap 13 (10-20) 06/15/17 06:24 BUN 10 mg/dL (7-21) 06/15/17 06:24 Creatinine 0.7 mg/dL (0.8-1.5) L 06/15/17 06:24 Est GFR ( Amer) > 60 06/15/17 06:24 Est GFR (Non-Af Amer) > 60 06/15/17 06:24 POC Glucose (mg/dL) 59 mg/dL (65-110) L 06/15/17 11:00 Random Glucose 104 mg/dL (70-110) 06/15/17 06:24 Hemoglobin A1c 6.6 % (4.2-6.5) H 06/12/17 13:00 Uric Acid 5.4 mg/dL (3.5-8.5) 06/12/17 07:30 Calcium 9.1 mg/dL (8.4-10.5) 06/15/17 06:24 Phosphorus 3.3 mg/dL (2.5-4.5) 06/12/17 07:30 Magnesium 1.9 mg/dL (1.7-2.2) 06/12/17 07:30 Total Bilirubin 0.4 mg/dL (0.2-1.3) 06/15/17 06:24 AST 23 U/L (17-59) 06/15/17 06:24 ALT 30 U/L (7-56) 06/15/17 06:24 Alkaline Phosphatase 64 U/L (38-126) 06/15/17 06:24 C-React Prot High Sens > 15.00 mg/L (1.00-3.00) H 06/12/17 12:20 Total Protein 6.5 g/dL (5.8-8.3) 06/15/17 06:24 Albumin 3.7 g/dL (3.0-4.8) 06/15/17 06:24 Globulin 2.8 gm/dL 06/15/17 06:24 Albumin/Globulin Ratio 1.3 (1.1-1.8) 06/15/17 06:24 Triglycerides 170 mg/dL (35-160) H 06/11/17 10:00 Cholesterol 201 mg/dL (130-200) H 06/11/17 10:00 LDL Cholesterol Direct 138 mg/dL (0-129) H 06/11/17 10:00 HDL Cholesterol 48 mg/dL (29-60) 06/11/17 10:00 Procalcitonin < 0.05 NG/ML (0.19-0.49) L 06/12/17 07:30 Urine Color Yellow (YELLOW) 06/11/17 20:20 Urine Appearance Clear (CLEAR) 06/11/17 20:20 Urine pH 6.0 (4.7-8.0) 06/11/17 20:20 Ur Specific [place] >= 1.030 (1.005-1.035) 06/11/17 20:20 Urine Protein 100 mg/dL (<30 mg/dL) H 06/11/17 20:20 Urine Glucose (UA) Negative mg/dL (NEGATIVE) 06/11/17 20:20 Urine Ketones Trace mg/dL (NEGATIVE) H 06/11/17 20:20 Urine Blood Negative (NEGATIVE) 06/11/17 20:20 Urine Nitrate Negative (NEGATIVE) 06/11/17 20:20 Urine Bilirubin Negative (NEGATIVE) 06/11/17 20:20 Urine Urobilinogen 1.0 E.U./dL (<1 E.U./dL) H 06/11/17 20:20 Ur Leukocyte Esterase Negative Vianca/uL (NEGATIVE) 06/11/17 20:20 Urine RBC 0 - 2 /hpf (0-2) 06/11/17 20:20 Urine WBC 1 - 3 /hpf (0-6) 06/11/17 20:20 Ur Epithelial Cells 0 - 2 /hpf (0-5) 06/11/17 20:20 Urine Bacteria Few (NEG) 06/11/17 20:20 HIV 1&2 Ag/Ab, 4th Gen Nonreactive (Nonreactive) 06/12/17 12:20 Attending/Attestation - Attestation I have personally seen and examined this patient.: Yes I have fully participated in the care of the patient.: Yes I have reviewed all pertinent clinical information, including history, physical exam and plan: Yes Notes (Text): 06/15/17 17:03 Attending note; Patient seen and examined with resident. Patient is a 41 year old male with history of DM-2, non compliant with medications due to lack of insurance is admitted for evaluation of right foot and ankle cellulitis. 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 Treated with vancomycin and cefepime. Hemoglobin A1c 6.6 .dietitian evaluation requested . Supplies given by diabetic nurse educator . Started on low-dose metformin. Podiatry evaluation appreciated. boot given. Needs outpatient podiatry follow-up. Appointment made for wednesday at [address] vickers. 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 Active smoker ; Tobacco cessation counselling provided. Continue nicotine patch. Life style modification recommended for obesity. Upon discharge patient will follow up with [facility] [place] [facility]. diagnosis; right lower extremity cellulitis tendinitis diabetes 06/15/17 17:06
== END 2017-06-15 13:32 | disposition home or self-care (01) | DRG 603 ==
LOC: ED 09:26 → ERH 12:30 → 5RNO 14:04
PROVIDERS: ADMIT Hospitalist; ATTEND Internal Medicine
DX: L03.115 Cellulitis of right lower limb (principal); E66.01 Morbid (severe) obesity due to excess calories; E11.9 Type 2 diabetes mellitus without complications; M76.71 Peroneal tendinitis, right leg; Z68.38 Body mass index [BMI] 38.0-38.9, adult; F17.210 Nicotine dependence, cigarettes, uncomplicated; Z91.14 Patient's other noncompliance with medication regimen